=== PATIENT | male | born 1970 | race Caucasian/White ===

== ENCOUNTER 2017-05-15 02:55 | Inpatient (IN) | payer SELFPAY ==
[2017-05-15] VITALS (9 sets, daily range): BP systolic 113–144; BP diastolic 70–91; PULSE 70–103; RESP 12–18; TEMP 97.6–98.8; O2SAT 92–99
[~2017-05-15 02:55] MED LIST: LORTA5 PO; METH500T3 PO; PERC7.5T13 PO
[2017-05-15] MEDS ORDERED: ONDANSETRON HCL 4 MG/2 ML VIAL ONE (03:14)
[2017-05-15] MEDS ORDERED: MORPHINE SULFATE 8 MG/ML INJ ONE (03:14)
[2017-05-15] MEDS ORDERED: SODIUM CHLOR 0.9% 1000 ML INJ 1,000 ML IV SCH (03:26)
[2017-05-15] MEDS ORDERED: SODIUM CHLORIDE 0.9% FLUSH 10 ML FLUSH IV FLUSH PRN (03:30)
[2017-05-15] MEDS ORDERED: MISCELLANEOUS NURSING INFORMATION XX SCH (03:30)
[2017-05-15] MEDS ORDERED: ACETAMINOPHEN 325 MG TAB PO PRN (03:30)
[2017-05-15] MEDS ORDERED: ONDANSETRON HCL 4 MG/2 ML VIAL IV PRN (03:30)
[2017-05-15] MEDS ORDERED: CHLORHEXIDINE GLUCONATE 2 % 1 PACK (2 CLOTHS) TOP PRN (03:30)
[2017-05-15] MEDS ORDERED: ACETAMINOPHEN/HYDROcodone 325 MG/5 MG TAB PO PRN ×2 (03:30)
[2017-05-15] MEDS ORDERED: ENALAPRILAT 1.25 MG/ML VIAL IV PRN (03:30)
[2017-05-15 03:34] LABS: BASOPHIL # 0.2 TH/MM3 (0-0.2); BASOPHIL % 1.1 % (0.0-2.0); EOSINOPHIL # 0.1 TH/MM3 (0-0.4); EOSINOPHIL % 0.6 % (0.0-4.0); HEMATOCRIT 50.5 % (39.0-51.0); HEMO FLAGS DIFF FINAL; LYMPH % 17.7 % (9.0-44.0); LYMPHOCYTE # 2.5 TH/MM3 (1.0-4.8); MEAN CELL VOLUME 94.1 FL (80.0-100.0); MEAN CORPUSCULAR HEMOGLOBIN 31.6 PG (27.0-34.0); MEAN CORPUSCULAR HGB CONC 33.6 % (32.0-36.0); MONO % 3.9 % (0.0-8.0); NEUT % 76.7 % (16.0-70.0); PLATELET COUNT 285 TH/MM3 (150-450); RED BLOOD COUNT 5.36 MIL/MM3 (4.50-5.90); RED CELL DISTRIBUTION WIDTH 14.5 % (11.6-17.2); WHITE BLOOD COUNT 14.3 TH/MM3 (4.0-11.0)
[2017-05-15 03:35] LABS: I-STAT POTASSIUM 3.9 MMOL/L (3.5-4.9)
--- NOTE | 2017-05-15 03:40 | RADRPT ---
EXAM DATE/TIME: 05/15/2017 02:55 [facility] COMPARISON: PELVIS AP ONLY, September 14, 2013, 22:10. INDICATIONS : Trauma alert. Chest pain. MEDICAL HISTORY : None. SURGICAL HISTORY : None. ENCOUNTER: Initial ACUITY: 1 day PAIN SCORE: 0/10 LOCATION: Bilateral pelvis FINDINGS: A single frontal view of the pelvis demonstrates no evidence of fracture. The bony pelvic ring is in tact. Bony mineralization is normal. The soft tissues are intact. Stable postsurgical changes are n oted in the lower lumbar spine status post fusion. CONCLUSION: No acute fracture or malalignment. Faisal Neal MD on May 15, 2017 at 3:39 Board Certified Radiologist. This report was verified electronically.
--- NOTE | 2017-05-15 03:43 | RADRPT ---
EXAM DATE/TIME: 05/15/2017 02:55 [facility] COMPARISON: CHEST SINGLE AP, March 15, 2016, 5:17. INDICATIONS : Trauma alert. Chest pain. MEDICAL HISTORY : None. SURGICAL HISTORY : None. ENCOUNTER: Initial ACUITY: 1 day PAIN SCORE: 0/10 LOCATION: Bilateral chest FINDINGS: 2 AP supine views of the chest demonstrates the lungs to be symmetrically aerated without evidence of mass, infiltrate or effusion. The left lateral chest wall and costophrenic angle are cut off the exa m. The cardiomediastinal contours are unremarkable. Osseous structures are intact. CONCLUSION: 1. Suboptimal exam. The left lateral chest wall and costophrenic angle were not included on the exam. 2. No acute cardiopulmonary disease. Faisal Neal MD on May 15, 2017 at 3:39 Board Certified Radiologist. This report was verified electronically.
--- NOTE | 2017-05-15 03:45 | PD ---
HPI Chief Complaint: trauma alert Time Seen by Provider: 03:26 Travel History International Travel<30 days: No Contact w/Intl Traveler<30days: No Traveled to known affect area: No History of Present Illness HPI 47-year-old male complains of headache, neck pain, back pain, numbness sensation of face, numbness sensation and weakness on the left arm and weakness of bilateral lower extremity. Patient states that he fell from standing physician tonight. Patient states that he had loss of consciousness. Patient is not sure how long he was out however could be 30 minutes. Patient came to the ED by himself. Patient complains of throbbing headache effuse over the head. Patient denies any visual change. Patient complains of moderate to severe tenderness on palpation neck and upper back and low back area. Patient status post L4-L5 back surgery in the past. Patient also has history diabetes. Patient has history of CAD status post FL in the past. Patient states that he had 3 beers tonight. PFSH Past Medical History Arthritis: No Asthma: No Blood Disorders: No Anxiety: Yes Depression: Yes Heart Rhythm Problems: No Cancer: No Cardiovascular Problems: No High Cholesterol: No Chemotherapy: No Chest Pain: No Congestive Heart Failure: No COPD: No Cerebrovascular Accident: No Diabetes: Yes Diminished Hearing: No Endocrine: No Gastrointestinal Disorders: No GERD: No Genitourinary: No Hiatal Hernia: No Hypertension: Yes Immune Disorder: No Implanted Vascular Access Dvce: No Kidney Stones: No Musculoskeletal: Yes (hx of spinal fusion, chronic back pain) Neurologic: No Psychiatric: Yes Reproductive: No Respiratory: No Immunizations Current: No Migraines: No Myocardial Infarction: No Radiation Therapy: No Renal Failure: No Seizures: No Sleep Apnea: No Thyroid Disease: No Ulcer: No Past Surgical History Abdominal Surgery: No Cardiac Surgery: No Ear Surgery: No Endocrine Surgery: No Eye Surgery: No Genitourinary Surgery: No Gynecologic Surgery: No Neurologic Surgery: No Oral Surgery: Yes (wisdom teeth extracted) Pacemaker: No Thoracic Surgery: No Tonsillectomy: Yes Other Surgery: Yes (TONSILLECTOMY,FUSION) Social History Alcohol Use: Yes Tobacco Use: Yes (1 ppd) Substance Use: Yes (pt stated, " I smoked marijuana when I was still 23") Allergies-Medications (Allergen,Severity, Reaction): Coded Allergies: Flagyl (Verified Allergy, Severe, VOMIT, 03/15/16) Toradol (Verified Allergy, Severe, MIGRAIN, 03/15/16) Benadryl (Verified Adverse Reaction, Severe, ITCH, 03/15/16) Reported Meds & Prescriptions Reported Meds & Active Scripts Active Reported Novolog Inj (Insulin Aspart) 1,000 Unit/10 Ml Vial 0 SQ DIRECTED Sliding Scale as directed. Novolin 70/30 Inj (Insulin Human Isoph/Insulin Regular) 1,000 Units/10 Ml Inj 15 Unit SQ BID Review of Systems General / Constitutional: No: Fever Eyes: No: Visual changes HENT: Positive: Headaches, Neck Pain Cardiovascular: No: Chest Pain or Discomfort Respiratory: No: Shortness of Breath Gastrointestinal: No: Abdominal Pain Genitourinary: No: Dysuria Musculoskeletal: No: Pain Skin: No Rash Neurologic: Positive: Weakness, Paresthesia Psychiatric: No: Depression Endocrine: No: Polydipsia Hematologic/Lymphatic: No: Easy Bruising Physical Exam Narrative GENERAL: Well-nourished, well-developed patient. SKIN: Focused skin assessment warm/dry. HEAD: Normocephalic. EYES: No scleral icterus. No injection or drainage. Pupils 2 mm equal reactive. NECK: Supple, trachea midline. No JVD or lymphadenopathy. Moderate tenderness on palpation paraspinal cervical spine. No midline tenderness. CARDIOVASCULAR: Regular rate and rhythm without murmurs, gallops, or rubs. RESPIRATORY: Breath sounds equal bilaterally. No accessory muscle use. GASTROINTESTINAL: Abdomen soft, non-tender, nondistended. MUSCULOSKELETAL: No cyanosis, or edema. BACK: Nontender without obvious deformity. No CVA tenderness. Neurologic exam: Patient has decreased light touch sensation the low part of the face bilaterally. Patient had decreased sensation on the left arm with some mild weakness to left arm. Patient has weakness and lower extremity. Patient unable to lift bilateral low extremity off the table. Data Data Last Documented VS Vital Signs Date Time Temp Pulse Resp B/P Pulse Ox O2 Delivery O2 Flow Rate FiO2 05/15/17 02:55 96 Nasal Cannula 3.00 Orders Morphine Inj (Morphine Inj) (05/15/17 03:14) Ondansetron Inj (Zofran Inj) (05/15/17 03:14) I-Stat Profile (05/15/17 03:15) I-Stat Creatinine (05/15/17 03:15) Complete Blood Count With Diff (05/15/17 03:15) Prothrombin Time / Inr (Pt) (05/15/17 03:15) Act Partial Throm Time (Ptt) (05/15/17 03:15) Type And Screen (05/15/17 03:15) Alcohol (Ethanol) (05/15/17 03:15) Chest, Single Ap (05/15/17 03:15) Pelvis, Ap Only (Routine) (05/15/17 03:15) Ct Brain W/O Iv Contrast(Rout) (05/15/17 03:15) Ct Cerv Spine W/O Contrast (05/15/17 03:15) Ct Thor Spine W/O Contrast (05/15/17 03:15) Ct Lumb Spine W/O Contrast (05/15/17 03:15) Iv Access Insert/Monitor (05/15/17 03:15) Ecg Monitoring (05/15/17 03:15) Oximetry (05/15/17 03:15) Oxygen Administration (05/15/17 03:15) Ed Poc Ultrasound (05/15/17 03:15) Drug Screen, Random Urine (05/15/17 03:15) Consult Aaron Gts (05/15/17 ) Admit To Inpatient (05/15/17 ) Vital Signs (Adult) ZECHARIAH.QSHIFT (05/15/17 03:26) Intake + Output ZECHARIAH.Q8H (05/15/17 03:26) Resp Pulse Oximetry (05/15/17 ) Neuro Checks ZECHARIAH.Q1H (05/15/17 03:26) ^ Cervical Collar (05/15/17 03:26) Instruction (05/15/17 03:26) Complete Blood Count With Diff (05/16/17 06:00) Basic Metabolic Panel (Bmp) (05/16/17 06:00) Resp Oxygen Shane C Titrat 1-4 L (05/15/17 ) Sodium Chlor 0.9% 1000 Ml Inj (Ns 1000 M (05/15/17 03:26) Sodium Chloride 0.9% Flush (Ns Flush) (05/15/17 03:30) Acetamin-Hydrocod 325-5 Mg ([place] 5-325 (05/15/17 03:30) Acetamin-Hydrocod 325-5 Mg ([place] 5-325 (05/15/17 03:30) Acetaminophen (Tylenol) (05/15/17 03:30) Enalaprilat Inj (Vasotec Inj) (05/15/17 03:30) Ondansetron Inj (Zofran Inj) (05/15/17 03:30) Pantoprazole Inj (Protonix Inj) (05/15/17 06:00) Bacitracin Oint (Baciguent Oint) (05/15/17 09:00) Consult Neurosurgery (05/15/17 ) ^ Initiate Protocol (05/15/17 03:26) Instruction (05/15/17 03:26) Misc Nursing Information (05/15/17 03:30) Chlorhexidine 2% Cloth (Chlorhexidine 2% (05/15/17 04:00) Chlorhexidine 2% Cloth (Chlorhexidine 2% (05/15/17 03:30) Mrsa Pcr Surveillance (05/15/17 03:26) Inpatient Certification (05/15/17 ) ^ Log Roll (05/15/17 03:26) Morphine Inj (Morphine Inj) (05/15/17 03:45) ([facility] Use Only)[facility] (05/15/17 ) Collar [place] (05/15/17 ) Admit Order (Ed Use Only) (05/15/17 03:56) Labs Laboratory Tests Test 05/15/17 03:10 White Blood Count 14.3 TH/MM3 Red Blood Count 5.36 MIL/MM3 Hemoglobin 17.0 GM/DL Bedside Hemoglobin 18.0 G/DL Hematocrit 50.5 % Bedside Hematocrit 53.0 % Mean Corpuscular Volume 94.1 FL Mean Corpuscular Hemoglobin 31.6 PG Mean Corpuscular Hemoglobin 33.6 % Concent Red Cell Distribution Width 14.5 % Platelet Count 285 TH/MM3 Mean Platelet Volume 8.6 FL Neutrophils (%) (Auto) 76.7 % Lymphocytes (%) (Auto) 17.7 % Monocytes (%) (Auto) 3.9 % Eosinophils (%) (Auto) 0.6 % Basophils (%) (Auto) 1.1 % Neutrophils # (Auto) 11.0 TH/MM3 Lymphocytes # (Auto) 2.5 TH/MM3 Monocytes # (Auto) 0.6 TH/MM3 Eosinophils # (Auto) 0.1 TH/MM3 Basophils # (Auto) 0.2 TH/MM3 CBC Comment DIFF FINAL Differential Comment Prothrombin Time 10.6 SEC Prothromb Time International 1.0 RATIO Ratio Activated Partial 26.5 SEC Thromboplast Time Bedside Sodium 138 MMOL/L Bedside Potassium 3.9 MMOL/L Bedside Chloride 98 MMOL/L Bedside Blood Urea Nitrogen 3 MG/DL Bedside Creatinine 0.8 MG/DL Bedside Glucose 132 MG/DL Ethyl Alcohol Level 90 MG/DL Blood Type B POSITIVE Antibody Screen NEGATIVE MDM Medical Screen Exam Complete: Yes Emergency Medical Condition: Yes Differential Diagnosis Differential diagnosis including head trauma, neck trauma, thoracic lumbar spine trauma. Narrative Course 47-year-old came in to the emergency room complaining of headache, neck pain, back pain, facial numbness sensation, left arm numbness and sensation and lower extremity weakness. Status post fall. History of back injury status post back surgery in the past. Considering trauma with neurologic deficit, trauma alert was called. Trauma Alert - Level Two Trauma Alert Level Two: Full trauma team activate Diagnosis Diagnosis: Primary Impression: Neck injury Qualified Code: S19.9XXA - Neck injury, initial encounter Additional Impression: Back injury Qualified Code: S39.92XA - Back injury, initial encounter Admitting Physician Requests: Admit Steve Boyd MD May 15, 2017 03:45
[2017-05-15 03:54] LABS: APTT (PATIENT) 26.5 SEC (24.3-30.1); PROTHROMBIN TIME - PATIENT 10.6 SEC (9.8-11.6)
[2017-05-15] MEDS ORDERED: CHLORHEXIDINE GLUCONATE 2 % 1 PACK (2 CLOTHS) TOP SCH (04:00)
--- NOTE | 2017-05-15 04:05 | RADRPT ---
EXAM DATE/TIME: 05/15/2017 03:40 [facility] COMPARISON: CT BRAIN W/O CONTRAST, February 19, 2015, 14:18. INDICATIONS : Trauma. Fall. RADIATION DOSE: 53.94 CTDIvol (mGy) MEDICAL HISTORY : None SURGICAL HISTORY : Fusion, lumbar. ENCOUNTER: Initial ACUITY: 1 day PAIN SCALE: 6/10 LOCATION: cranial TECHNIQUE: Multiple contiguous axial images were obtained of the head. Using automated exposure control and adj ustment of the mA and/or kV according to patient size, radiation dose was kept as low as reasonably a chievable to obtain optimal diagnostic quality images. DICOM format image data is available electro nically for review and comparison. FINDINGS: CEREBRUM: The ventricles are normal for age. No evidence of midline shift, mass lesion, hemorrhage or acute in farction. No extra-axial fluid collections are seen. POSTERIOR FOSSA: The cerebellum and brainstem are intact. The 4th ventricle is midline. The cerebellopontine angle i s unremarkable. EXTRACRANIAL: The visualized portion of the orbits is intact. SKULL: The calvaria is intact. No evidence of skull fracture. CONCLUSION: Negative trauma study. Faisal Neal MD on May 15, 2017 at 4:03 Board Certified Radiologist. This report was verified electronically.
--- NOTE | 2017-05-15 04:06 | RADRPT ---
EXAM DATE/TIME: 05/15/2017 03:40 [facility] COMPARISON: CT CERVICAL SPINE W/O CONTRAST, February 19, 2015, 14:18. INDICATIONS : Trauma. Fall. RADIATION DOSE: 42.99 CTDIvol (mGy) MEDICAL HISTORY : None SURGICAL HISTORY : Fusion, lumbar. ENCOUNTER: Initial ACUITY: 1 day PAIN SCALE: 6/10 LOCATION: neck TECHNIQUE: Volumetric scanning of the cervical spine was performed. Multiplanar reconstructions i n the sagittal, coronal and oblique axial planes were performed. Using automated exposure control a nd adjustment of the mA and/or kV according to patient size, radiation dose was kept as low as reason ably achievable to obtain optimal diagnostic quality images. DICOM format image data is available e lectronically for review and comparison. FINDINGS: The sagittal reconstructions demonstrate normal alignment and normal prevertebral soft tissues. The d ens is intact and there is a normal atlantoaxial relationship. The axial images demonstrate that the vertebral bodies and posterior elements are intact. The soft ti ssues are within normal limits. There is no evidence of acute fracture or malalignment. CONCLUSION: Negative trauma CT. Faisal Neal MD on May 15, 2017 at 4:04 Board Certified Radiologist. This report was verified electronically.
[2017-05-15] MEDS: MORPHINE SULFATE 4 MG/ML INJ IV PRN ×2 (04:21→06:25)
--- NOTE | 2017-05-15 04:22 | RADRPT ---
EXAM DATE/TIME: 05/15/2017 03:44 [facility] COMPARISON: No previous studies available for comparison. INDICATIONS : Trauma. Fall. RADIATION DOSE: 24.94 CTDIvol (mGy) ; Combined studies - Thoracic Spine/Lumbar Spine MEDICAL HISTORY : None SURGICAL HISTORY : Fusion, lumbar. ENCOUNTER: Initial ACUITY: 1 day PAIN SCALE: 6/10 LOCATION: thoracic TECHNIQUE: Volumetric scanning of the thoracic spine was performed. Multiplanar reconstructions in the sagittal , coronal and oblique axial planes were performed. Using automated exposure control and adjustment o f the mA and/or kV according to patient size, radiation dose was kept as low as reasonably achievable to obtain optimal diagnostic quality images. DICOM format image data is available electronically f or review and comparison. FINDINGS: The vertebral bodies of the thoracic spine are in normal alignment without evidence of subluxation. Vertebral body height is maintained. No fractures are seen. The axial images demonstrate that the vertebral bodies and posterior elements are intact. The visuali zed ribs are unremarkable as well. CONCLUSION: Negative trauma CT Faisal Neal MD on May 15, 2017 at 4:19 Board Certified Radiologist. This report was verified electronically.
[2017-05-15] MEDS ORDERED: N7030SS SQ (04:25)
[2017-05-15] MEDS ORDERED: NOVOLOGP2 SQ (04:25)
--- NOTE | 2017-05-15 04:25 | RADRPT ---
EXAM DATE/TIME: 05/15/2017 03:44 [facility] COMPARISON: CT LUMBAR SPINE W/O CONTRAST, March 15, 2016, 7:04. INDICATIONS : Trauma. Fall. RADIATION DOSE: 24.94 CTDIvol (mGy) ; Combined studies - Thoracic Spine/Lumbar Spine MEDICAL HISTORY : None SURGICAL HISTORY : Hemorrhoidectomy. ENCOUNTER: Initial ACUITY: 1 day PAIN SCALE: 6/10 LOCATION: lumbar TECHNIQUE: Volumetric scanning of the lumbar spine was performed. Multiplanar reconstructions in the sagittal, coronal and oblique axial planes were performed. Using automated exposure control and adjustment of the mA and/or kV according to patient size, radiation dose was kept as low as reasonably achievable t o obtain optimal diagnostic quality images. DICOM format image data is available electronically for review and comparison. FINDINGS: VERTEBRAE: Normal vertebral body height. DISCS: The patient is status post ankle fusion of the L4-5 level with bilateral pedicle screws and posterior fixation rods. The hardware remains intact in appearance. ALIGNMENT: No evidence of subluxation. T12-L1: The thecal sac has a normal diameter. No evidence of disc bulge or protrusion. The neural foramina are patent bilaterally. L1-L2: The thecal sac has a normal diameter. No evidence of disc bulge or protrusion. The neural foramina are patent bilaterally. L2-L3: The thecal sac has a normal diameter. No evidence of disc bulge or protrusion. The neural foramina are patent bilaterally. L3-L4: There is a mild annular disc bulge with minimal flattening of the anterior thecal sac and no focal pr otrusion. There are degenerative changes involving the facet joints right greater than left. The neur al foramina are patent bilaterally. L4-L5: Status post staple fusion with bilateral pedicle screws and posterior fixation rods. The thecal sac i s preserved. Neural foramina are patent. L5-S1: There is a mild annular disc bulge with minimal flattening of the thecal sac and no focal protrusion. There are mild degenerative changes on the facet joints. The neural foramina are patent bilaterally. CONCLUSION: 1. No acute fracture or malalignment. 2. Stable postoperative changes status post fusion at the L4-5 level. 3. Mild annular disc bulges again noted at the L3-4 and L5-S1 levels. Faisal Neal MD on May 15, 2017 at 4:21 Board Certified Radiologist. This report was verified electronically.
[2017-05-15] MEDS ORDERED: PANTOPRAZOLE SODIUM 40 MG VIAL IVP SCH (06:00)
[2017-05-15] MEDS ORDERED: DEXTROSE 50% IN WATER 50 ML VIAL(D50) IV PRN (07:30)
[2017-05-15] MEDS ORDERED: GLUCAGON 1 MG/ML VIAL OTHER PRN (07:30)
[2017-05-15] MEDS ORDERED: BISACODYL 10 MG SUPP RECTAL PRN (07:30)
[2017-05-15] MEDS: METHOCARBAMOL 500 MG TAB PO SCH ×3 (08:09→23:10)
[2017-05-15] MEDS: DOCUSATE SODIUM 50 MG/SENNA 8.6 MG TAB PO SCH ×2 (08:09→19:52)
[2017-05-15] MEDS: BACITRACIN TOP OINT 15 GM TUBE TOP SCH ×2 (08:09→19:53)
[2017-05-15] MEDS: LACTULOSE SYRUP 20 GM/30 ML CUP PO SCH (08:10)
--- NOTE | 2017-05-15 08:16 | MH ---
cc: RICARDO HUMPHREY DATE OF ADMISSION: 05/15/2017 HISTORY OF PRESENT ILLNESS The patient is a 47-year-old male who presented himself to the emergency room stating that he fell, lost consciousness and had acute worsening of his chronic lower back pain and trouble moving his legs. The patient states that he was walking when he fell from a standing height and struck his head and was unconscious for up to 30 minutes. The patient states that he was able to ambulate to come to the emergency room but once he was on the stretcher he could barely move his extremities. He also complains of severe back pain on top of his chronic lower back pain. The patient persistently discusses his back fusions and states he needed multiple surgeries, more on his back. The patient admits to drinking alcohol tonight. The patient was evaluated by the emergency room physician, found to have intact airway, breathing circulation with GCS 15, in no distress. Patient having subjective weakness in his foot and felt this was activation criteria and the patient was upgraded to a Trauma Alert. REVIEW OF SYSTEMS A 12-point review of systems is done with the patient and negative except for the pertinent positives mentioned above in the history of present illness. PAST MEDICAL HISTORY 1. Coronary artery disease, status post VT. 2. Anxiety. 3. Depression. 4. Diabetes. 5. Hypertension. 6. Chronic back pain. PAST SURGICAL HISTORY Multiple back surgeries. SOCIAL HISTORY Patient uses tobacco and alcohol currently. History of previous marijuana use. ALLERGIES 1. FLAGYL. 2. TORADOL. 3. BENADRYL. MEDICATIONS 1. [place]. 2. Percocet. 3. Robaxin. PHYSICAL EXAMINATION VITAL SIGNS: Blood pressure and heart rate within normal limits. GENERAL: The patient is a thin male in no acute distress. HEENT: Head is normocephalic, atraumatic. Pupils are equal, round and reactive to light. Sclera anicteric. Midface is stable. Oral cavity is clear. Airway is nonobstructed. NECK: Cervical collar in place. Cervical spine nontender to palpation. Trachea is midline. No JVD. CHEST: Chest wall is nontender to palpation. Breath sounds present bilaterally. HEART: Regular rhythm. No murmurs. ABDOMEN: Soft, nondistended. No seatbelt sign. No organomegaly. No ascites. FAST exam is negative. PELVIS: Stable without deformity. EXTREMITIES: No clubbing, cyanosis or edema. No deformity to four extremities. Multiple abrasions of the skin. No lacerations. BACK: The patient has pain over the thoracic and lumbar spine with no deformity. NEUROLOGIC: GCS is 15. Flat affect. Does not cooperate with exam. Will only move his toes slightly. Does withdraw to pain. LABORATORY VALUES Hemoglobin 17.0. IMAGING CT scan of the patient's head is negative. CT scan of the patient's cervical, lumbar and thoracic spines are negative for acute injury. Multiple chronic changes without of the lumbar spine. ASSESSMENT AND PLAN The patient is a 47-year-old male, status post a self-reported fall with loss of consciousness. GCS is 15. Moving all extremities with subjective weakness of his left lower extremity as well as numbness sensation of his face and left arm. Subjective neurologic findings. Due to patient with a reported history of trauma and possibility of paralysis, will maintain the patient logroll, cervical collar in place, and consult neurosurgery for evaluation prior to any further work-up to sitter MRI or further imaging. Will maintain the patient's pain control. No other acute injuries. Will perform q.1h. Neuro-checks and monitor this patient. MD JENNIFER Kwon/BA /7:42 AM /7:53 AM
--- NOTE | 2017-05-15 09:36 | PD.CONS ---
[facility] Service Neurosurgery Consult Requested By Dr Juliocesar Gomez Reason for Consult Weakness after fall from standing height. Primary Care Physician Unknown History of Present Illness This is a 47-year-old male who reports that he had been at a friend's house and had 1-/2 beers and was walking home when he passed out and fell. He states he felt a little dizzy just prior to his passing out. He reports a loss of consciousness possibly for 30 minutes. When he came to he called 911 and EMS transported the patient to [facility] for evaluation. The patient reported headache, severe neck and back pain with numbness and weakness to the face, left arm and both legs. Due to the physical examinations findings of weakness and numbness the ED Physician activated a level two trauma. It is noted that the ED Physician documents the patient had 3 beers and that he came to the Emergency Department by himself. As the patient is being evaluated his cell phone keeps ringing in the closet and he keeps saying that it might be his cone cleaner. A cane is noted with his possessions which he reports using when he goes for a long walk because of right leg weakness and it going out on him. He does report having a chest pain and syncope 2 to 3 weeks ago and was evaluated with a negative work up at that time. Review of Systems Constitutional: Patient denies any fever, chills, night sweats or any recent weight gain or loss. Integumentary: Patient denies any rashes, ulcerations or other lesions to the skin. HEENT: Patient complains of blurry vision to the right eye. He denies any other visual or hearing difficulty. Respiratory: Patient feels a little short of breath. He denies any wheezing or productive cough. Cardiovascular: Patient complains of chest pain and palpitations. He denies any irregular heartbeat. Gastrointestinal: Patient complains of some nausea. He denies any abdominal pain, vomiting or incontinence of stool. Genitourinary: Patient denies any frequency, urgency, pain with urination or any urinary incontinence. Musculoskeletal: Patient complains of neck and back pain. He has weakness to both legs. He complains of left hand swelling and pain. Neurologic: Patient complains of a headache. He complains of facial and extremity numbness and weakness. Haematological/Lymphatic: Patient denies any easy bruising, bleeding tendencies or swollen glands. Psychiatric: Patient complains of being anxious. Past Family Social History Allergies: Coded Allergies: Flagyl (Verified Allergy, Severe, VOMIT, 03/15/16) Toradol (Verified Allergy, Severe, MIGRAIN, 03/15/16) Benadryl (Verified Adverse Reaction, Severe, ITCH, 03/15/16) Past Medical History 1. Coronary artery disease, status post [place]. 2. Anxiety. 3. Depression. 4. Diabetes. 5. Stroke. 6. Chronic back pain (DDD). He denies any hypertension. Past Surgical History L4-5 fusion and redo. Reported Medications 1. Insulin. 2. Lorazepam (Reportedly hasn't had in 2 months.) Denies any other medications to include pain medications for his back. Active Ordered Medications Current Medications Medications (Trade) Dose Ordered Sig/Ramos Route Start Time Stop Time Status Last Admin (NS 1000 ml Inj) 1,000 ml @ 100 mls/hr Q10H IV 05/15/17 03:26 05/15/17 04:21 (NS Flush) 2 ml UNSCH PRN IV FLUSH 05/15/17 03:30 (Morphine Inj) 4 mg Q1H PRN IV 05/15/17 03:45 05/15/17 06:25 (Gibbon 5-325 Mg) 1 tab Q4H PRN PO 05/15/17 03:30 (Gibbon 5-325 Mg) 2 tab Q4H PRN PO 05/15/17 03:30 05/15/17 08:10 (Tylenol) 650 mg Q6H PRN PO 05/15/17 03:30 (Vasotec Inj) 1.25 mg Q8H PRN IV 05/15/17 03:30 (Zofran Inj) 4 mg Q6H PRN IV 05/15/17 03:30 (Protonix Inj) 40 mg Q24H IVP 05/15/17 06:00 05/15/17 04:21 (Baciguent Oint) 1 applic BID TOP 05/15/17 09:00 05/15/17 08:09 Miscellaneous Information 1 Q361D XX 05/15/17 03:30 (Chlorhexidine 2% Cloth) 3 pack Taper DAILY@04 TOP 05/15/17 04:00 05/11/18 03:59 05/15/17 04:00 Chlorhexidine Gluconate 3 pack 3 pack UNSCH PRN TOP 05/15/17 03:30 (Mvi-12 Inj/ Thiamine Inj/ Folvite Inj/NS 500 ml Inj) 511.2 ml @ 125 mls/hr Q24H IV 05/15/17 10:00 05/17/17 14:06 (D50w (Vial) Inj) 50 ml UNSCH PRN IV 05/15/17 07:30 (Glucagon Inj) 1 mg UNSCH PRN OTHER 05/15/17 07:30 (Geraldine-Colace) 1 tab BID PO 05/15/17 09:00 05/15/17 08:09 (Lactulose Liq) 30 ml DAILY PO 05/15/17 09:00 05/15/17 08:10 (Dulcolax Supp) 10 mg DAILY PRN RECTAL 05/15/17 07:30 (Robaxin) 500 mg Q8H PO 05/15/17 08:00 05/15/17 08:09 Family History Father: [place], DM. Paternal grandmother: CVA. Maternal grandmother: CVA. Social History Single, years ago. 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 States he is a recovering alcoholic but not doing well with it. Does smoke cigarettes. History of prior marijuana use years ago but no illicit drug use now. Physical Exam Vital Signs Vital Signs Date Time Temp Pulse Resp B/P Pulse Ox O2 Delivery O2 Flow Rate FiO2 05/15/17 09:10 12 05/15/17 08:00 98.8 80 15 113/75 92 05/15/17 08:00 80 05/15/17 07:44 99 21 05/15/17 07:00 91 Room Air 05/15/17 06:00 80 05/15/17 04:15 103 05/15/17 04:15 98.8 103 12 144/91 98 05/15/17 04:15 98 Nasal Cannula 2.00 05/15/17 02:55 96 Nasal Cannula 3.00 05/15/17 02:55 96 3.00 Physical Exam GENERAL: The patient is asleep but easily awakens to verbal stimuli. He readily interacts. He appears minimally to mildly uncomfortable during most of the evaluation. His affect is essentially flat. SKIN: Warm, dry & intact except for a small ecchymotic area to the right lateral arm, a small abrasion to the right forearm and a slight beefy red rash to the inner thighs & groin region. HEENT: Normocephalic, atraumatic. PERRLA 3 to 2 mm brisk, EOMI. TMs pearly fermin w/o any otorrhea noted. Bilateral nares moist & pink w/o any rhinorrhea noted. MMM & pink w/o any oral lesions noted. NECK: Midline cervical spine TTP, neck supple, no JVD, trachea midline. CARDIOVASCULAR: S1S2 w/RRR w/o M/G/R, radial, pedal & posterior tibial pulses 2 + bilaterally, cap refill < 2 sec, no pedal edema. Monitor is sinus rhythm w/o any ectopy noted. RESPIRATORY: CTAB w/o W/R/R, equal excursion, nonlaboured, on RA. GASTROINTESTINAL: Abdomen soft, nontender, no palpable masses or organomegaly, positive bowel sounds to all quadrants. It is noted that with deep palpation the patient reports pain to the back. GENITOURINARY: Normal male genitalia, slight beefy red rash to the inner thighs & groin region. MUSCULOSKELETAL: QUINTANILLA to varying degrees, no evident deformities or clubbing. Left hand mildly swollen & TTP. RECTAL: Good tone, no evident blood, stool palpated in the vault. NEUROLOGICAL: AAOx3. Speech clear & appropriate. Follows simple commands w/o difficulty. CN VII bilateral facial numbness L>R, otherwise CN II-XII grossly intact. Decreased sensation to BUE more so distally and L>R. Decreased sensation to BLE more so to anterior and lateral thighs and less to the feet, perineal area with some numbness. Motor strength RUE 5/5 to include hand intrinsics/extrinsics, LUE 4+ to 5/5 to include hand intrinsics/extrinsics (reports pain during testing), BLE 2+ to 3/ 5. Questionable Cervantes's on right but negative on left. No ankle clonus. Plantar response negative on left and neutral on right. Laboratory Laboratory Tests Test 05/15/17 03:10 White Blood Count 14.3 Red Blood Count 5.36 Hemoglobin 17.0 Bedside Hemoglobin 18.0 Hematocrit 50.5 Bedside Hematocrit 53.0 Mean Corpuscular Volume 94.1 Mean Corpuscular Hemoglobin 31.6 Mean Corpuscular Hemoglobin 33.6 Concent Red Cell Distribution Width 14.5 Platelet Count 285 Mean Platelet Volume 8.6 Neutrophils (%) (Auto) 76.7 Lymphocytes (%) (Auto) 17.7 Monocytes (%) (Auto) 3.9 Eosinophils (%) (Auto) 0.6 Basophils (%) (Auto) 1.1 Neutrophils # (Auto) 11.0 Lymphocytes # (Auto) 2.5 Monocytes # (Auto) 0.6 Eosinophils # (Auto) 0.1 Basophils # (Auto) 0.2 CBC Comment DIFF FINAL Differential Comment Prothrombin Time 10.6 Prothromb Time International 1.0 Ratio Activated Partial 26.5 Thromboplast Time Bedside Sodium 138 Bedside Potassium 3.9 Bedside Chloride 98 Bedside Blood Urea Nitrogen 3 Bedside Creatinine 0.8 Bedside Glucose 132 Ethyl Alcohol Level 90 Blood Type B POSITIVE Antibody Screen NEGATIVE Result Diagram: 05/15/17309 Imaging Recent Impressions Thoracic Spine CT 05/15/17314 Signed Impressions: Service Date/Time: Monday, May 15, 2017 03:44 - CONCLUSION: Negative trauma CT Faisal Neal MD Pelvis X-Ray 05/15/17314 Signed Impressions: Service Date/Time: Monday, May 15, 2017 02:55 - CONCLUSION: No acute fracture or malalignment. Faisal Neal MD Lumbar Spine CT 05/15/17314 Signed Impressions: Service Date/Time: Monday, May 15, 2017 03:44 - CONCLUSION: 1. No acute fracture or malalignment. 2. Stable postoperative changes status post fusion at the L4-5 level. 3. Mild annular disc bulges again noted at the L3-4 and L5-S1 levels. Faisal Neal MD Head CT 05/15/17314 Signed Impressions: Service Date/Time: Monday, May 15, 2017 03:40 - CONCLUSION: Negative trauma study. Faisal Neal MD Chest X-Ray 05/15/17314 Signed Impressions: Service Date/Time: Monday, May 15, 2017 02:55 - CONCLUSION: 1. Suboptimal exam. The left lateral chest wall and costophrenic angle were not included on the exam. 2. No acute cardiopulmonary disease. Faisal Neal MD Cervical Spine CT 05/15/17 0315 Signed Impressions: Service Date/Time: Monday, May 15, 2017 03:40 - CONCLUSION: Negative trauma CT. Faisal Neal MD Assessment and Plan Assessment and Plan Impression: 1. Fall 2. Syncope 3. Mild TBI 4. Neck pain 5. Back pain 6. Extremity numbness 7. BLE weakness Negative CT imaging. Patient w/continues w/persistent numbness to all extremities and BLE weakness. Plan: Primary management per Hospitalist/Trauma. Neuro checks. Will obtain MRI imaging of brain & complete spine. Aurelio Barbosa May 15, 2017 09:35
[2017-05-15] MEDS: MULTIVITAMIN INJ 10 ML, THIAMINE INJ 100 MG, FOLIC ACID INJ 1 MG in SODIUM CHLORID 0.9%... IV SCH ×2 (10:42→10:50)
[2017-05-15] MEDS: INSULIN ASPART SUPPLEMENTAL SCALE SQ SCH ×3 (10:59→19:59)
--- NOTE | 2017-05-15 13:36 | PD.CONS ---
HPI Service Rehabilitation Medicine Consult Requested By [facility] trauma service Reason for Consult Comprehensive rehabilitation evaluation. Primary Care Physician Unknown History of Present Illness Francis Jeffries is a 47-year-old [id number] male admitted [facility] 05/15/17 after reported fall from a standing position with reported loss of consciousness. He was noted to have increase in his chronic low back pain and difficulty moving his lower extremities. Glascow coma scale was 15. Head CT was negative for acute intracranial injury. CT of the cervical and thoracic spine were negative. Lumbar spine CT showed no fracture or malalignment with stable postoperative changes L4-L5 fusion and mild annular disc bulges L4-L5 and L5-S1. Patient is reporting diffuse impaired sensation in both upper and lower extremities and persistent diffuse back pain. MRI of the spine is pending. Review of Systems Constitutional: COMPLAINS OF: Fatigue Eyes: COMPLAINS OF: Blurred vision, DENIES: Diplopia Ears, nose, mouth, throat: DENIES: Throat pain Respiratory: DENIES: Shortness of breath Cardiovascular: DENIES: Chest pain Gastrointestinal: COMPLAINS OF: Constipation, DENIES: Abdominal pain Genitourinary: DENIES: Urinary incontinence Musculoskeletal: COMPLAINS OF: Back pain, Neck pain Integumentary: DENIES: Rash Hematologic/lymphatic: DENIES: Bruising Immunologic/allergic: DENIES: Urticaria Neurologic: COMPLAINS OF: Headache, Localized weakness, Paresthesias, DENIES: Speech Problems Psychiatric: DENIES: Confusion Past Family Social History Allergies: Coded Allergies: Flagyl (Verified Allergy, Severe, VOMIT, 03/15/16) Toradol (Verified Allergy, Severe, MIGRAIN, 03/15/16) Benadryl (Verified Adverse Reaction, Severe, ITCH, 03/15/16) Past Medical History Coronary artery disease status post PR Depression Anxiety Diabetes mellitus Hypertension Chronic low back pain Past Surgical History Multiple spine surgeries Current Medications Current Medications Medications (Trade) Dose Ordered Sig/Ramos Route Start Time Stop Time Status Last Admin (NS 1000 ml Inj) 1,000 ml @ 100 mls/hr Q10H IV 05/15/17 03:26 05/15/17 04:21 (NS Flush) 2 ml UNSCH PRN IV FLUSH 05/15/17 03:30 (Tylenol) 650 mg Q6H PRN PO 05/15/17 03:30 (Vasotec Inj) 1.25 mg Q8H PRN IV 05/15/17 03:30 (Zofran Inj) 4 mg Q6H PRN IV 05/15/17 03:30 (Protonix Inj) 40 mg Q24H IVP 05/15/17 06:00 05/15/17 04:21 Bacitracin 1 applic 1 applic BID TOP 05/15/17 09:00 05/15/17 08:09 (Mvi-12 Inj/ Thiamine Inj/ Folvite Inj/NS 500 ml Inj) 511.2 ml @ 125 mls/hr Q24H IV 05/15/17 10:00 05/17/17 14:06 05/15/17 10:50 (D50w (Vial) Inj) 50 ml UNSCH PRN IV 05/15/17 07:30 (Glucagon Inj) 1 mg UNSCH PRN OTHER 05/15/17 07:30 (Geraldine-Colace) 1 tab BID PO 05/15/17 09:00 05/15/17 08:09 (Lactulose Liq) 30 ml DAILY PO 05/15/17 09:00 05/15/17 08:10 (Dulcolax Supp) 10 mg DAILY PRN RECTAL 05/15/17 07:30 (Robaxin) 500 mg Q8H PO 05/15/17 08:00 05/15/17 08:09 Family History Mother: Dementia Father: Diabetes mellitus Social History Prior to admission patient lived in [place], [place] with a roommate. Exam I&O / VS 05/14/17 05/14/17 05/15/17 15:00 23:00 07:00 Intake Total 206 ml Output Total 275 ml Balance -69 ml Intake Oral 0 ml IV Total 206 ml Output Urine Total 275 ml Vital Signs Date Time Temp Pulse Resp B/P Pulse Ox O2 Delivery O2 Flow Rate FiO2 05/15/17 12:01 97.6 70 18 124/70 93 05/15/17 10:00 76 05/15/17 09:10 12 05/15/17 08:00 98.8 80 15 113/75 92 05/15/17 08:00 77 05/15/17 07:44 99 21 05/15/17 07:00 91 Room Air 05/15/17 06:00 80 05/15/17 04:15 103 05/15/17 04:15 98.8 103 12 144/91 98 05/15/17 04:15 98 Nasal Cannula 2.00 05/15/17 02:55 96 Nasal Cannula 3.00 05/15/17 02:55 96 3.00 General: No acute distress Respiratory: Lungs CTA, Non-labored respirations, BS equal Gastrointestinal: Positive Bowel Sounds, Non-Distended Cardiovascular: Normal rate, Normal peripheral perfusion, Regular Rhythm Musculoskeletal: Swelling (None in the distal lower extremities) Psychiatric: Cooperative Orientation: oriented to Self, oriented to Place, oriented to Time, oriented to Situation Neurologic: Cranial Nerves (intact 2 through 12), Facial Symmetry (symmetric), Speech (no word finding difficulties or dysarthria) Motor: Right Upper Extremity (5/5), Left Upper Extremity (5/5), Right Lower Extremity (at least 23/5), Left Lower Extremity (at least 23/5) Sensory Impaired diffusely in the lower extremities and to a lesser degree the upper extremities DTRs: Normal Babinski: Negative Clonus: Negative Assessment and Plan Diagnosis: (1) Lower extremity weakness Laterality: bilateral Qualified Code: R29.898 - Weakness of both lower extremities (2) Extremity numbness Assessment 1. Fall from a standing position with reported loss of consciousness 05/15/17 with extremity numbness and lower extremity weakness 2. Coronary artery disease status post PR 3. Depression 4. Anxiety 5. Diabetes mellitus 6. Hypertension 7. Chronic low back pain with history of previous lumbar surgery Plan 1. MRI of the cervical/thoracic/lumbosacral spine has been ordered per neurosurgery 2. Physical therapy to mobilize once cleared after imaging 3. Will follow regarding ongoing rehabilitation needs while hospitalized at discharge in conjunction with case management Thank you for this consult Melly Betts MD May 15, 2017 13:35
[2017-05-15] MEDS ORDERED: LORazepam 2 MG/ML VIAL IV PUSH SCH (15:30)
[2017-05-15 17:04] LABS: HEMOGLOBIN A1a 1.3 %; HEMOGLOBIN A1b 0.9 %; HEMOGLOBIN F 1.2 %; HEMOGLOBIN LA1C 2.2 %
[2017-05-15] MEDS ORDERED: LORazepam 2 MG TAB PO PRN (17:45)
[2017-05-15] MEDS ORDERED: LORazepam 2 MG/ML VIAL IV PUSH PRN ×3 (17:45)
[2017-05-15] MEDS ORDERED: LORazepam 1 MG TAB PO PRN (17:45)
[2017-05-15] MEDS ORDERED: FLUMAZENIL 0.5 MG/5 ML VIAL IV PUSH PRN (17:45)
--- NOTE | 2017-05-15 17:57 | PD.CONS ---
HPI Service [facility] Consult Requested By Primary Care Physician Unknown Diagnoses: History of Present Illness 47-year-old male with a history of alcoholism, L4-L5 fusion, who presents with what he reports to be a syncopal episode around 3 AM. He says he was drinking at a friend's house, only had 2-1/2 beers. He says while walking home he suddenly became lightheaded and passed out. Denied any chest pain or shortness of breath prior to this. He also reports bilateral facial and lower extremity numbness. He does report constant sharp nonradiating substernal chest pain over the past day. patient reports right eye blurriness since his fall yesterday. Review of Systems performed and negative except for HPI and past medical history. Past Family Social History Allergies: Coded Allergies: Flagyl (Verified Allergy, Severe, VOMIT, 03/15/16) Toradol (Verified Allergy, Severe, MIGRAIN, 03/15/16) Benadryl (Verified Adverse Reaction, Severe, ITCH, 03/15/16) Physical Exam Vital Signs Vital Signs Date Time Temp Pulse Resp B/P Pulse Ox O2 Delivery O2 Flow Rate FiO2 05/15/17 15:57 97.9 83 18 128/83 94 05/15/17 12:01 97.6 70 18 124/70 93 05/15/17 10:00 76 05/15/17 09:10 12 05/15/17 08:00 98.8 80 15 113/75 92 05/15/17 08:00 77 05/15/17 07:44 99 21 05/15/17 07:00 91 Room Air 05/15/17 06:00 80 05/15/17 04:15 103 05/15/17 04:15 98.8 103 12 144/91 98 05/15/17 04:15 98 Nasal Cannula 2.00 05/15/17 02:55 96 Nasal Cannula 3.00 05/15/17 02:55 96 3.00 Physical Exam GENERAL: This is a well-nourished, well-developed patient, in no apparent distress.alert and oriented 3. SKIN: No rashes, ecchymoses or lesions. Cool and dry. HEAD: Atraumatic. Normocephalic. No temporal or scalp tenderness. EYES: Pupils equal round and reactive. Extraocular motions intact. No scleral icterus. No injection or drainage. vision intact bilaterally, all 4 quadrants. An initial evaluation, patient reports absence of vision in right superior medial quadrant, however regains on repeat examination performed after examining opposite eye, ENT: Nose without bleeding, purulent drainage or septal hematoma. Throat without erythema, tonsillar hypertrophy or exudate. Uvula midline. Airway patent. NECK: Trachea midline. No JVD or lymphadenopathy. Supple, nontender, no meningeal signs. CARDIOVASCULAR: Regular rate and rhythm without murmurs, gallops, or rubs. RESPIRATORY: Clear to auscultation. Breath sounds equal bilaterally. No wheezes , rales, or rhonchi. GASTROINTESTINAL: Abdomen soft, non-tender, nondistended. No hepato-splenomegaly , or palpable masses. No guarding. MUSCULOSKELETAL: Extremities without clubbing, cyanosis, or edema. No joint tenderness, effusion, or edema noted. No calf tenderness. Negative Homans sign bilaterally. NEUROLOGICAL: Awake and alert. Cranial nerves II through XII intact. Motor and sensory grossly within normal limits. Five out of 5 muscle strength in all muscle groups, however patient states bilateral lower extremity strength limited by pain. Normal speech. Laboratory Laboratory Tests Test 05/15/17 05/15/17 03:10 08:15 White Blood Count 14.3 Red Blood Count 5.36 Hemoglobin 17.0 Bedside Hemoglobin 18.0 Hematocrit 50.5 Bedside Hematocrit 53.0 Mean Corpuscular Volume 94.1 Mean Corpuscular Hemoglobin 31.6 Mean Corpuscular Hemoglobin 33.6 Concent Red Cell Distribution Width 14.5 Platelet Count 285 Mean Platelet Volume 8.6 Neutrophils (%) (Auto) 76.7 Lymphocytes (%) (Auto) 17.7 Monocytes (%) (Auto) 3.9 Eosinophils (%) (Auto) 0.6 Basophils (%) (Auto) 1.1 Neutrophils # (Auto) 11.0 Lymphocytes # (Auto) 2.5 Monocytes # (Auto) 0.6 Eosinophils # (Auto) 0.1 Basophils # (Auto) 0.2 CBC Comment DIFF FINAL Differential Comment Prothrombin Time 10.6 Prothromb Time International 1.0 Ratio Activated Partial 26.5 Thromboplast Time Bedside Sodium 138 Bedside Potassium 3.9 Bedside Chloride 98 Bedside Blood Urea Nitrogen 3 Bedside Creatinine 0.8 Bedside Glucose 132 Ethyl Alcohol Level 90 Blood Type B POSITIVE Antibody Screen NEGATIVE Nasal Screen MRSA (PCR) MRSA NOT DETECTED Result Diagram: 05/15/17309 Imaging Last Impressions Thoracic Spine CT 05/15/17314 Signed Impressions: Service Date/Time: Monday, May 15, 2017 03:44 - CONCLUSION: Negative trauma CT Faisal Neal MD Pelvis X-Ray 05/15/17314 Signed Impressions: Service Date/Time: Monday, May 15, 2017 02:55 - CONCLUSION: No acute fracture or malalignment. Faisal Neal MD Lumbar Spine CT 05/15/17314 Signed Impressions: Service Date/Time: Monday, May 15, 2017 03:44 - CONCLUSION: 1. No acute fracture or malalignment. 2. Stable postoperative changes status post fusion at the L4-5 level. 3. Mild annular disc bulges again noted at the L3-4 and L5-S1 levels. Faisal Neal MD Head CT 05/15/17314 Signed Impressions: Service Date/Time: Monday, May 15, 2017 03:40 - CONCLUSION: Negative trauma study. Faisal Neal MD Chest X-Ray 05/15/17314 Signed Impressions: Service Date/Time: Monday, May 15, 2017 02:55 - CONCLUSION: 1. Suboptimal exam. The left lateral chest wall and costophrenic angle were not included on the exam. 2. No acute cardiopulmonary disease. Faisal Neal MD Cervical Spine CT 05/15/17314 Signed Impressions: Service Date/Time: Monday, May 15, 2017 03:40 - CONCLUSION: Negative trauma CT. Faisal Neal MD Assessment and Plan Assessment and Plan //Possible syncope. -Expect this was likely secondary to etoh intoxication, dehydration -Due to patient's concern, will order ultrasound carotids, echocardiogram. Patient unable to stand secondary to back pain at this time. //Status post ground-level fall. //Severe back pain. Trauma service, neurosurgery following. Pain management as per surgical service. Appreciate assistance. //Chest pain. Atypical. Given timing of onset being yesterday, will check serial troponin and EKG. Echocardiogram ordered for syncope as above. //Suspected alcohol withdrawal //Alcoholism [facility] protocol ordered. //Right eye visual deficit. Reported. On repeat examination several minutes later, patient regains full vision in right eye. Suspect factitious. //Diabetes mellitus. Insulin sliding scale. Diabetic diet. A1c pending. Continue to monitor blood sugars. //Tobaccoism. Cessation counseling provided. //Cytosis. Likely stress related. No signs of infection. Continue to monitor. //Prophylaxis. As per surgical service. Discussed Condition With patient, nurse. Otto Cronin MD May 15, 2017 17:57
[2017-05-15] MEDS: LORazepam 2 MG/ML VIAL IV PUSH PRN (19:53)
[2017-05-15 20:10] LABS: AMPHETAMINE, URINE NEG (NEG); BARBITURATES, URINE NEG (NEG); COCAINE, URINE NEG (NEG)
[2017-05-15] MEDS ORDERED: MORPHINE SULFATE 4 MG/ML INJ IV PUSH ONE (20:30)
--- NOTE | 2017-05-15 21:00 | RADRPT ---
EXAM DATE/TIME: 05/15/2017 18:39 [facility] COMPARISON: No previous studies available for comparison. INDICATIONS : Syncope. MEDICAL HISTORY : Cerebrovascular accident. Myocardial infarction. Paresthesia. Diabetes. Anxiety. SURGICAL HISTORY : Tonsillectomy. Spinal fusion. Foot surgery, unspecified. ENCOUNTER: Initial ACUITY: 2 days PAIN SCORE: 8/10 LOCATION: Bilateral neck PEAK SYSTOLIC VELOCITIES (cm/sec): ICA/CCA RATIO: Right: 0.9 Left: 0.8 ICA: Right: 81.3 Left: 76.6 CCA: Right: 95.3 Left: 90.6 ECA: Right: 92.4 Left: 93.0 VERTEBRAL: Right: 35.1 antegrade Left: 47.8 antegrade Elevated flow velocities and ICA/CCA ratios have been found to correlate with increased degrees of vessel stenosis, calculated as percentage of diameter relative to a normal segment of distal ICA/CCA FINDINGS: RIGHT CAROTID: No significant stenosis is visualized. The waveforms are within normal limits. LEFT CAROTID: No significant stenosis is visualized. The waveforms are within normal limits. VERTEBRAL ARTERIES: Antegrade flow is seen in both vertebral arteries. CONCLUSION: Normal hemodynamic profile bilateral carotids. Delta Coley MD on May 15, 2017 at 20:58 Board Certified Radiologist. This report was verified electronically.
--- NOTE | 2017-05-15 21:59 | RADRPT ---
EXAM DATE/TIME: 05/15/2017 21:33 [facility] COMPARISON: CT THORACIC SPINE W/O CONTRAST, May 15, 2017, 3:44. MRI THORACIC SPINE W/O CONTRAST, March 15 6, 17:04. INDICATIONS : Pain. Mid back pain. MEDICAL HISTORY : Diabetes mellitus type 2. SURGICAL HISTORY : Tonsillectomy. Fusion, lumbar. Bilateral foot sx. ENCOUNTER: Initial ACUITY: 1 day PAIN SCORE: 3/10 LOCATION: Bilateral mid back region. TECHNIQUE: Multiplanar multisequence MRI of the thoracic spine was performed. FINDINGS: VERTEBRA: Normal vertebral body height. Homogeneous marrow signal. ALIGNMENT: Normal. CORD: Normal position (T12-L1) and configuration. T1-T2: Normal. T2-T3: The thecal sac has a normal diameter. No evidence of disc bulge or protrusion. T3-T4: Left paracentral disc bulge, only seen on sagittal images, similar to prior. T4-T5: Left lateral disc bulge or protrusion, only seen on sagittal images, similar to prior. T5-T6: The thecal sac has a normal diameter. No evidence of disc bulge or protrusion. T6-T7: The thecal sac has a normal diameter. No evidence of disc bulge or protrusion. T7-T8: The thecal sac has a normal diameter. No evidence of disc bulge or protrusion. T8-T9: The thecal sac has a normal diameter. No evidence of disc bulge or protrusion. T9-T10: The thecal sac has a normal diameter. No evidence of disc bulge or protrusion. T10-T11: The thecal sac has a normal diameter. No evidence of disc bulge or protrusion. T11-T12: The thecal sac has a normal diameter. No evidence of disc bulge or protrusion. T12-L1: The thecal sac has a normal diameter. No evidence of disc bulge or protrusion. CONCLUSION: No acute findings in the thoracic spine. Left lateral disc bulge or protrusions at T3-4 and T4-5 are similar to prior MRI in March 2016. No significant abnormalities in the marrow of the thoracic verte bral bodies. Delta Coley MD on May 15, 2017 at 21:54 Board Certified Radiologist. This report was verified electronically.
--- NOTE | 2017-05-15 22:12 | RADRPT ---
EXAM DATE/TIME: 05/15/2017 21:33 [facility] COMPARISON: CT CERVICAL SPINE W/O CONTRAST, May 15, 2017, 3:40. MRI CERVICAL SPINE W/O CONTRAST, March 15 6, 17:04. INDICATIONS : Pain. MEDICAL HISTORY : Diabetes mellitus type 2. SURGICAL HISTORY : Tonsillectomy. Lumbar sx, Bilateral foot sx. ENCOUNTER: Initial ACUITY: 1 day PAIN SCORE: 4/10 LOCATION: Bilateral neck region. TECHNIQUE: Multiplanar, multisequence MRI examination of the cervical spine was performed. FINDINGS: Image quality is compromised by patient motion. The study is still diagnostic VERTEBRAE: Normal vertebral body height. Homogeneous marrow signal. ALIGNMENT: No evidence of subluxation. CORD: Normal configuration and signal. POST FOSSA: The cerebellar tonsils are normal in position. C2-C3: The thecal sac has a normal configuration. There is no evidence of disc herniation or spinal canal s tenosis. The neural foramina are patent bilaterally. C3-C4: The thecal sac has a normal configuration. There is no evidence of disc herniation or spinal canal s tenosis. The neural foramina are patent bilaterally. C4-C5: The thecal sac has a normal configuration. There is no evidence of disc herniation or spinal canal s tenosis. The neural foramina are patent bilaterally. C5-C6: Mild central bulging of the disc does cause some flattening of the ventral margin of thecal sac. Thi s is similar to prior MR. C6-C7: Minimal bulging of the disc without significant deformity of the thecal sac on axial images. C7-T1: The thecal sac has a normal configuration. There is no evidence of disc herniation or spinal canal s tenosis. The neural foramina are patent bilaterally. CONCLUSION: 1. No signal abnormalities in the osseous structures of the cervical spine. No evidence compression deformity. 2. Mild disc bulging at C5-6 and C6-7, similar to prior MRI in March 2016. Delta Coley MD on May 15, 2017 at 22:07 Board Certified Radiologist. This report was verified electronically.
[2017-05-15] MEDS ORDERED: GADODIAMIDE PF 287 MG/ML 5 ML VIAL (for RAD MRI) IV ONE (22:27)
--- NOTE | 2017-05-15 22:51 | RADRPT ---
EXAM DATE/TIME: 05/15/2017 21:33 [facility] COMPARISON: CT BRAIN W/O CONTRAST, February 19, 2015, 14:18. CT BRAIN W/O CONTRAST, May 15, 2017, 3:40. INDICATIONS : Syncope MEDICAL HISTORY : Diabetes mellitus type 2. SURGICAL HISTORY : Tonsillectomy. Lumbar sx, Bilateral foot sx. ENCOUNTER: Initial ACUITY: 1 day PAIN SCORE: 3/10 LOCATION: Bilateral cranial TECHNIQUE: Multiplanar, multisequence MRI of the brain was performed without contrast. FINDINGS: CEREBRUM: The ventricles are normal for age. No evidence of midline shift, mass lesion, hemorrhage or acute in farction. No extraaxial fluid collections are seen. The pituitary gland and suprasellar cistern are normal in configuration. WHITE MATTER: No significant signal abnormalities are seen in the white matter. POSTERIOR FOSSA: The cerebellum and brainstem are intact. The 4th ventricle is midline. The cerebellopontine angle is unremarkable. The cerebellar tonsils are normal in position.DIFFUSION IMAGING: No focal areas of restricted diffusion are seen. No evidence of acute infarction. EXTRACRANIAL: The visualized portions of the orbits and paranasal sinuses are unremarkable. CONCLUSION: Negative MRI of the brain without contrast. Delta Coley MD on May 15, 2017 at 22:48 Board Certified Radiologist. This report was verified electronically.
[2017-05-15 23:16] LABS: CREATINE KINASE 47 U/L (39-308)
--- NOTE | 2017-05-15 23:17 | RADRPT ---
EXAM DATE/TIME: 05/15/2017 21:33 [facility] COMPARISON: MRI LUMBAR SPINE W & W/O CONTRAST, March 15, 2016, 17:04. INDICATIONS : Lower back pain. History of prior lumbar fusion. CONTRAST: 15 cc Omniscan (gadodiamide) IV MEDICAL HISTORY : Diabetes mellitus type 2. SURGICAL HISTORY : Fusion, lumbar. Tonsillectomy. Bilateral foot sx. ENCOUNTER: Initial ACUITY: 1 day PAIN SCORE: 4/10 LOCATION: Bilateral lower back region. TECHNIQUE: Multiplanar multisequence MRI of the lumbar spine was performed with and without contrast. FINDINGS: The most caudal appearing lumbar vertebra is numbered as L5. VERTEBRAE: Homogeneous signal. Normal alignment. CONUS: Normal level and configuration. DISCS: Status post fusion at the L4-5 level with bilateral pedicle screws and posterior fixation rods. N. iniguez sceptibility artifact. POST CONTRAST: No abnormal areas of contrast enhancement are seen. T12-L1: The thecal sac has a normal diameter. No evidence of disc bulge or protrusion. The neural foramina are patent bilaterally. L1-L2: The thecal sac has a normal diameter. No evidence of disc bulge or protrusion. The neural foramina are patent bilaterally. L2-L3: The thecal sac has a normal diameter. No evidence of disc bulge or protrusion. are mild degenerativ e changes involving the facet joints with hypertrophy of ligamentum flavum. Mild narrowing of the rig ht neural foramen is again noted. L3-L4: The thecal sac has a normal diameter. No evidence of disc bulge or protrusion. The neural foramina are patent bilaterally. L4-L5: Status post fusion with bilateral pedicle screws and posterior fixation rods. The thecal sac is prese rved. The neural foramina are patent. L5-S1: Mild disc bulge versus broad-based posterior protrusion without significant change. There is slight f lattening the anterior thecal sac. The neural foramina are patent. There are mild degenerative change involving the facet joints. There is no central canal stenosis. CONCLUSION: 1. Status post fusion at the L4-5 level with stable appearance and preserve thecal sac. 2. Mild disc bulge versus broad-based posterior protrusion at L5-S1 without change. 3. Mild degenerative changes involving the lower facet joints. Faisal Neal MD on May 15, 2017 at 23:10 Board Certified Radiologist. This report was verified electronically.
[2017-05-16] MEDS: LORazepam 2 MG/ML VIAL IV PUSH PRN ×3 (00:37→06:17)
[2017-05-16 01:05] VITALS: BP 130/70; PULSE 83; RESP 16; TEMP 98.4; O2SAT 93
[2017-05-16 04:00] VITALS: BP 119/62; PULSE 66; RESP 18; TEMP 97.9; O2SAT 94
[2017-05-16] MEDS: INSULIN ASPART SUPPLEMENTAL SCALE SQ SCH ×2 (06:21→13:12)
[2017-05-16 08:00] VITALS: BP 107/65; PULSE 77; RESP 20; TEMP 97.7; O2SAT 94
[2017-05-16] MEDS: DOCUSATE SODIUM 50 MG/SENNA 8.6 MG TAB PO SCH (08:25)
[2017-05-16] MEDS: METHOCARBAMOL 500 MG TAB PO SCH (08:25)
[2017-05-16] MEDS: MULTIVITAMIN INJ 10 ML, THIAMINE INJ 100 MG, FOLIC ACID INJ 1 MG in SODIUM CHLORID 0.9%... IV SCH (08:26)
[2017-05-16] MEDS: LACTULOSE SYRUP 20 GM/30 ML CUP PO SCH (08:26)
[2017-05-16] MEDS: BACITRACIN TOP OINT 15 GM TUBE TOP SCH (08:26)
[2017-05-16 08:57] LABS: AUTOMATED NEUTROPHIL # 6.1 TH/MM3 (1.8-7.7); BASOPHIL # 0.1 TH/MM3 (0-0.2); BASOPHIL % 0.8 % (0.0-2.0); EOSINOPHIL # 0.1 TH/MM3 (0-0.4); EOSINOPHIL % 1.5 % (0.0-4.0); HEMATOCRIT 44.2 % (39.0-51.0); HEMO FLAGS DIFF FINAL; LYMPH % 21.3 % (9.0-44.0); LYMPHOCYTE # 1.9 TH/MM3 (1.0-4.8); MEAN CELL VOLUME 95.5 FL (80.0-100.0); MEAN CORPUSCULAR HEMOGLOBIN 31.8 PG (27.0-34.0); MEAN CORPUSCULAR HGB CONC 33.3 % (32.0-36.0); MONO % 6.2 % (0.0-8.0); NEUT % 70.2 % (16.0-70.0); PLATELET COUNT 226 TH/MM3 (150-450); RED BLOOD COUNT 4.62 MIL/MM3 (4.50-5.90); RED CELL DISTRIBUTION WIDTH 14.3 % (11.6-17.2); WHITE BLOOD COUNT 8.7 TH/MM3 (4.0-11.0)
[2017-05-16] MEDS ORDERED: INSULIN DETEMIR 100 UNITS/ML VIAL SQ SCH ×2 (09:15→21:00)
[2017-05-16] MEDS ORDERED: NICOTINE 14 MG/24 HR PATCH T-DERMAL ONE (09:15)
[2017-05-16 09:17] LABS: BICARBONATE 24.1 MEQ/L (21.0-32.0); POTASSIUM 3.8 MEQ/L (3.5-5.1)
[2017-05-16 12:00] VITALS: BP 121/74; PULSE 95; RESP 20; TEMP 98; O2SAT 96
--- NOTE | 2017-05-16 12:23 | HHI.NSPN ---
History Chief Complaint: Persistent numbness and weakness. Interval History 05/15: This is a 47-year-old male who reports that he had been at a friend's house and had 1-/2 beers and was walking home when he passed out and fell. He states he felt a little dizzy just prior to his passing out. He reports a loss of consciousness possibly for 30 minutes. When he came to he called 911 and EMS transported the patient to [facility] for evaluation. The patient reported headache, severe neck and back pain with numbness and weakness to the face, left arm and both legs. Due to the physical examinations findings of weakness and numbness the ED Physician activated a level two trauma. It is noted that the ED Physician documents the patient had 3 beers and that he came to the Emergency Department by himself. 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 A cane is noted with his possessions which he reports using when he goes for a long walk because of right leg weakness and it going out on him. He does report having a chest pain and syncope 2 to 3 weeks ago and was evaluated with a negative work up at that time. 05/16: The patient is awake and alert when seen this afternoon. He continues to complain of numbness and weakness to the face and extremities with the only change being less numbness to the right foot. He continues to have pain to the neck and back. Physical Therapy is at the bedside and reported that he did get up to a chair yesterday with assistance. He was transferred to a regular med/ surg floor from the [facility] yesterday. He completed MRI imaging of the brain and complete spine yesterday evening which was unremarkable for any acute findings. System Review Comments Constitutional: Patient denies any fever or chills. HEENT: Patient complains of blurry vision to the right eye. He denies any other visual or hearing difficulty. Respiratory: Patient denies any shortness of breath or productive cough. Cardiovascular: Patient complains of chest pain and palpitations. He denies any irregular heartbeat. Gastrointestinal: Patient denies any abdominal pain, nausea, vomiting or incontinence of stool. Genitourinary: Patient denies any frequency, urgency, pain with urination or any urinary incontinence. Musculoskeletal: Patient complains of neck and back pain. He has weakness to both legs. He complains of left hand swelling and pain. Neurologic: Patient complains of a headache. He complains of facial and extremity numbness and weakness. Psychiatric: Patient complains of being anxious. Exam Results Vital Signs Date Time Temp Pulse Resp B/P Pulse Ox O2 Delivery O2 Flow Rate FiO2 05/16/17 08:20 Room Air 05/16/17 08:00 97.7 77 20 107/65 94 05/15/17 07:44 21 05/15/17 04:15 2.00 Intake and Output 05/15/17 05/15/17 05/16/17 08:00 16:00 00:00 Intake Total 206 ml 440 ml Output Total 275 ml Balance -69 ml 440 ml Physical Examination GENERAL: The patient is awake and readily interacts. He appears minimally uncomfortable w/o any evident distress. His affect is somewhat flat. SKIN: Warm, dry & intact except for ecchymosis to the right arm and a small abrasion to the right forearm. HEENT: Normocephalic, atraumatic. NECK: Midline cervical spine TTP, neck supple, no JVD, trachea midline. CARDIOVASCULAR: S1S2 w/RRR w/o M/G/R, radial, pedal & posterior tibial pulses 2 + bilaterally, cap refill < 2 sec, no pedal edema. RESPIRATORY: CTAB w/o W/R/R, equal excursion, nonlaboured, on RA. GASTROINTESTINAL: Abdomen soft, nontender, positive bowel sounds to all quadrants. MUSCULOSKELETAL: QUINTANILLA to varying degrees, no evident deformities or clubbing. Left hand mildly swollen & TTP. NEUROLOGICAL: AAOx3. Speech clear & appropriate. Follows simple commands w/o difficulty. Decreased sensation to BUE more so distally and L>R. Decreased sensation to BLE more so to anterior and lateral thighs and less to the feet. Motor strength RUE 5/5 to include hand intrinsics/extrinsics, LUE 4+ to 5/5 but hand intrinsics/extrinsics 3+ to 4/5 (reports pain during testing), BLE 2+ to 3/ 5. Lab, Micro, Other Results Allergies Coded Allergies Type Severity Reaction Last Updated Verified Flagyl Allergy Severe VOMIT 03/15/16 Yes Toradol Allergy Severe MIGRAIN 03/15/16 Yes Benadryl Adverse Reaction Severe ITCH 03/15/16 Yes Recent Impressions Thoracic Spine CT 05/15/17314 Signed Impressions: Service Date/Time: Monday, May 15, 2017 03:44 - CONCLUSION: Negative trauma CT Faisal Neal MD Pelvis X-Ray 05/15/17314 Signed Impressions: Service Date/Time: Monday, May 15, 2017 02:55 - CONCLUSION: No acute fracture or malalignment. Faisal Neal MD Lumbar Spine CT 05/15/17314 Signed Impressions: Service Date/Time: Monday, May 15, 2017 03:44 - CONCLUSION: 1. No acute fracture or malalignment. 2. Stable postoperative changes status post fusion at the L4-5 level. 3. Mild annular disc bulges again noted at the L3-4 and L5-S1 levels. Faisal Neal MD Head CT 05/15/17314 Signed Impressions: Service Date/Time: Monday, May 15, 2017 03:40 - CONCLUSION: Negative trauma study. Faisal Neal MD Chest X-Ray 05/15/17314 Signed Impressions: Service Date/Time: Monday, May 15, 2017 02:55 - CONCLUSION: 1. Suboptimal exam. The left lateral chest wall and costophrenic angle were not included on the exam. 2. No acute cardiopulmonary disease. Faisal Neal MD Cervical Spine CT 05/15/17314 Signed Impressions: Service Date/Time: Monday, May 15, 2017 03:40 - CONCLUSION: Negative trauma CT. Faisal Neal MD Thoracic Spine MRI 05/15/17 Signed Impressions: Service Date/Time: Monday, May 15, 2017 21:33 - CONCLUSION: No acute findings in the thoracic spine. Left lateral disc bulge or protrusions at T3- 4 and T4-5 are similar to prior MRI in March 2016. No significant abnormalities in the marrow of the thoracic vertebral bodies. Delta Coley MD Lumbar Spine MRI 05/15/17 Signed Impressions: Service Date/Time: Monday, May 15, 2017 21:33 - CONCLUSION: 1. Status post fusion at the L4-5 level with stable appearance and preserve thecal sac. 2. Mild disc bulge versus broad-based posterior protrusion at L5-S1 without change. 3. Mild degenerative changes involving the lower facet joints. Faisal Neal MD Cervical Spine MRI 05/15/17 0000 Signed Impressions: Service Date/Time: Monday, May 15, 2017 21:33 - CONCLUSION: 1. No signal abnormalities in the osseous structures of the cervical spine. No evidence compression deformity. 2. Mild disc bulging at C5-6 and C6-7, similar to prior MRI in March 2016. Delta Coley MD Carotid Artery Ultrasound 05/15/17 0000 Signed Impressions: Service Date/Time: Monday, May 15, 2017 18:39 - CONCLUSION: Normal hemodynamic profile bilateral carotids. Delta Coley MD Brain MRI 05/15/17 0000 Signed Impressions: Service Date/Time: Monday, May 15, 2017 21:33 - CONCLUSION: Negative MRI of the brain without contrast. Delta Coley MD ///// 05:59 17:59 05:59 17:59 05:59 17:59 Intake Total 646 ml Output Total 275 ml 600 ml 500 ml Balance 371 ml -600 ml -500 ml Intake Oral 0 ml IV Total 646 ml Output Urine Total 275 ml 600 ml 500 ml # Bowel Movements 0 Laboratory Tests Test 05/15/17 05/15/17 05/15/17 05/16/17 03:10 08:15 18:15 07:35 Bedside Hemoglobin 18.0 G/DL Bedside Hematocrit 53.0 % Prothrombin Time 10.6 SEC Prothromb Time International 1.0 RATIO Ratio Activated Partial 26.5 SEC Thromboplast Time Bedside Sodium 138 MMOL/L Bedside Potassium 3.9 MMOL/L Bedside Chloride 98 MMOL/L Bedside Blood Urea Nitrogen 3 MG/DL Bedside Creatinine 0.8 MG/DL Bedside Glucose 132 MG/DL Hemoglobin A1c 6.8 % Total Creatine Kinase 47 U/L Troponin I LESS THAN 0.02 NG/ML Ethyl Alcohol Level 90 MG/DL Blood Type B POSITIVE Antibody Screen NEGATIVE White Blood Count 14.3 TH/MM3 8.7 TH/MM3 Red Blood Count 5.36 MIL/MM3 4.62 MIL/MM3 Hemoglobin 17.0 GM/DL 14.7 GM/DL Hematocrit 50.5 % 44.2 % Mean Corpuscular Volume 94.1 FL 95.5 FL Mean Corpuscular Hemoglobin 31.6 PG 31.8 PG Mean Corpuscular Hemoglobin 33.6 % 33.3 % Concent Red Cell Distribution Width 14.5 % 14.3 % Platelet Count 285 TH/MM3 226 TH/MM3 Mean Platelet Volume 8.6 FL 8.9 FL Neutrophils (%) (Auto) 76.7 % 70.2 % Lymphocytes (%) (Auto) 17.7 % 21.3 % Monocytes (%) (Auto) 3.9 % 6.2 % Eosinophils (%) (Auto) 0.6 % 1.5 % Basophils (%) (Auto) 1.1 % 0.8 % Neutrophils # (Auto) 11.0 TH/MM3 6.1 TH/MM3 Lymphocytes # (Auto) 2.5 TH/MM3 1.9 TH/MM3 Monocytes # (Auto) 0.6 TH/MM3 0.5 TH/MM3 Eosinophils # (Auto) 0.1 TH/MM3 0.1 TH/MM3 Basophils # (Auto) 0.2 TH/MM3 0.1 TH/MM3 CBC Comment DIFF FINAL DIFF FINAL Differential Comment Nasal Screen MRSA (PCR) MRSA NOT DETECTED Urine Opiates Screen POS Urine Barbiturates Screen NEG Urine Amphetamines Screen NEG Urine Benzodiazepines Screen POS Urine Cocaine Screen NEG Urine Cannabinoids Screen NEG Sodium Level 137 MEQ/L Potassium Level 3.8 MEQ/L Chloride Level 103 MEQ/L Carbon Dioxide Level 24.1 MEQ/L Anion Gap 10 MEQ/L Blood Urea Nitrogen 9 MG/DL Creatinine 0.69 MG/DL Estimat Glomerular Filtration 122 ML/MIN Rate Random Glucose 91 MG/DL Calcium Level 8.8 MG/DL Vital Signs Date Time Temp Pulse Resp B/P Pulse Ox O2 Delivery O2 Flow Rate FiO2 05/16/17 12:00 98.0 95 20 121/74 96 05/16/17 08:20 Room Air 05/16/17 08:00 97.7 77 20 107/65 94 05/16/17 04:00 97.9 66 18 119/62 94 05/16/17 01:05 98.4 83 16 130/70 93 05/15/17 21:03 98.1 77 16 141/83 95 05/15/17 15:57 97.9 83 18 128/83 94 05/15/17 12:01 97.6 70 18 124/70 93 05/15/17 10:00 76 05/15/17 09:10 12 05/15/17 08:00 98.8 80 15 113/75 92 05/15/17 08:00 77 05/15/17 07:44 99 21 05/15/17 07:00 91 Room Air 05/15/17 06:00 80 05/15/17 04:15 103 05/15/17 04:15 98.8 103 12 144/91 98 05/15/17 04:15 98 Nasal Cannula 2.00 05/15/17 02:55 96 Nasal Cannula 3.00 05/15/17 02:55 96 3.00 Medical Decision Making Impression and Plan Impression: 1. Fall 2. Syncope 3. Mild TBI 4. Neck pain 5. Back pain 6. Extremity numbness 7. BLE weakness CT brain negative trauma study. CT cervical spine negative trauma CT. CT thoracic spine negative trauma CT. CT lumbar spine no acute findings, stable postop changes s/p L4-5 fusion and mild annular disc bulges again noted at L3-4 & L5-S1 levels. MRI brain negative. MRI cervical spine no signal abnormalities or compression deformities , mild disc bulging at C5-6 & C6-7 similar to 2015 MRI. MRI thoracic spine no acute spine findings or significant abnormalities to marrow, left lateral disc bulge/protrusions at T3-4 & T4-5 similar to 2015 MRI. MRI lumbar spine s/p L4-5 fusion w/stable appearance & preservation of the thecal sac, mild disc bulge vs broad-based protrusion at L5-S1 w/o change and mild degenerative changes involving the lower facet joints. Patient examination essentially unchanged from yesterday. Imaging studies do not explain the patient's signs and symptoms. Plan: Primary management per Hospitalist. Neuro checks. Aurelio Barbosa May 16, 2017 12:23 Aurelio Barbosa May 16, 2017 12:23 Aurelio Barbosa May 16, 2017 12:23
[2017-05-16] MEDS ORDERED: CHLO10CA5 PO (12:46)
--- NOTE | 2017-05-16 12:52 | ECHRPT ---
Indication: syncope CONCLUSIONS Normal left ventricular size. Wall thickness is normal. The left ventricular systolic function is low normal with an estimated ejection fraction in the rang e of 50- 55%. The pulmonary valve is not well visualized. BP: / HR: Rhythm: Sinus Technical Quality:Very technically difficult study FINDINGS LEFT VENTRICLE Normal left ventricular size. Wall thickness is normal. The left ventricular systolic function is low normal with an estimated ejection fraction in the rang e of 50- 55%. RIGHT VENTRICLE Normal right ventricular size and systolic function. LEFT ATRIUM The left atrial size is normal. RIGHT ATRIUM The right atrial size is normal. ATRIAL SEPTUM Normal atrial septal thickness without atrial level shunting by limited color doppler interrogation. AORTA The aortic root and proximal ascending aorta are normal in size on limited imaging. MITRAL VALVE Structurally normal mitral valve. No mitral valve stenosis or regurgitation. AORTIC VALVE Trileaflet aortic valve. No aortic valve stenosis or regurgitation. TRICUSPID VALVE Structurally normal tricuspid valve. No tricuspid valve stenosis or regurgitation. PULMONARY VALVE The pulmonary valve is not well visualized. VESSELS The inferior vena cava is normal in size. PERICARDIUM No pericardial effusion. Derik Boykin MD, FACC (Electronically Signed) Final Date:16 May 2017 12:52
--- NOTE | 2017-05-16 18:22 | EKG ---
Date Performed: 05/15/2017 Time Performed: 18:19:02 PTAGE: 47 years EKG: SINUS BRADYCARDIA Since previous tracing, no significant change noted BORDERLINE ECG PREVIOUS TRACING : 03/15/2016 05.04 DOCTOR: Violette Mendez Interpretating Date/Time 05/16/2017 18:22:02
--- NOTE | 2017-05-16 22:47 | HHI.DS ---
Discharge Summary Admission Date May 15, 2017 at 03:58 Discharge Date: May 16, 2017 Admitting Diagnosis spine injury (1) Factitious disorder ICD Code: F68.10 Procedures no invasive procedures performed. Brief History - From Admission 47-year-old male with a history of alcoholism, L4-L5 fusion, who presents with what he reports to be a syncopal episode around 3 AM. He says he was drinking at a friend's house, only had 2-1/2 beers. He says while walking home he suddenly became lightheaded and passed out. Denied any chest pain or shortness of breath prior to this. He also reports bilateral facial and lower extremity numbness. He does report constant sharp nonradiating substernal chest pain over the past day. patient reports right eye blurriness since his fall yesterday. CBC/BMP: 05/16/17 0735 05/16/17 0735 Significant Findings Laboratory Tests Test 05/15/17 05/15/17 05/16/17 03:10 18:15 07:35 Bedside Hemoglobin 18.0 G/DL (12.0-17.0) Bedside Hematocrit 53.0 % (38.0-51.0) Bedside Blood Urea Nitrogen 3 MG/DL (8-26) Bedside Glucose 132 MG/DL (60-95) Hemoglobin A1c 6.8 % (4.3-6.0) Troponin I LESS THAN 0.02 NG/ML (0.02-0.05) Ethyl Alcohol Level 90 MG/DL (0-5) White Blood Count 14.3 TH/MM3 (4.0-11.0) Neutrophils (%) (Auto) 76.7 % 70.2 % (16.0-70.0) (16.0-70.0) Neutrophils # (Auto) 11.0 TH/MM3 (1.8-7.7) Urine Opiates Screen POS (NEG) Urine Benzodiazepines Screen POS (NEG) Imaging Last Impressions Thoracic Spine CT 05/15/17 4675 Signed Impressions: Service Date/Time: Monday, May 15, 2017 03:44 - CONCLUSION: Negative trauma CT Faisal Neal MD Pelvis X-Ray 05/15/17314 Signed Impressions: Service Date/Time: Monday, May 15, 2017 02:55 - CONCLUSION: No acute fracture or malalignment. Faisal Neal MD Lumbar Spine CT 05/15/17314 Signed Impressions: Service Date/Time: Monday, May 15, 2017 03:44 - CONCLUSION: 1. No acute fracture or malalignment. 2. Stable postoperative changes status post fusion at the L4-5 level. 3. Mild annular disc bulges again noted at the L3-4 and L5-S1 levels. Faisal Neal MD Head CT 05/15/17314 Signed Impressions: Service Date/Time: Monday, May 15, 2017 03:40 - CONCLUSION: Negative trauma study. Faisal Neal MD Chest X-Ray 05/15/17314 Signed Impressions: Service Date/Time: Monday, May 15, 2017 02:55 - CONCLUSION: 1. Suboptimal exam. The left lateral chest wall and costophrenic angle were not included on the exam. 2. No acute cardiopulmonary disease. Faisal Neal MD Cervical Spine CT 05/15/17314 Signed Impressions: Service Date/Time: Monday, May 15, 2017 03:40 - CONCLUSION: Negative trauma CT. Faisal Neal MD Thoracic Spine MRI 05/15/17 Signed Impressions: Service Date/Time: Monday, May 15, 2017 21:33 - CONCLUSION: No acute findings in the thoracic spine. Left lateral disc bulge or protrusions at T3- 4 and T4-5 are similar to prior MRI in March 2016. No significant abnormalities in the marrow of the thoracic vertebral bodies. Delta Coley MD Lumbar Spine MRI 05/15/17 Signed Impressions: Service Date/Time: Monday, May 15, 2017 21:33 - CONCLUSION: 1. Status post fusion at the L4-5 level with stable appearance and preserve thecal sac. 2. Mild disc bulge versus broad-based posterior protrusion at L5-S1 without change. 3. Mild degenerative changes involving the lower facet joints. Faisal Neal MD Cervical Spine MRI 05/15/17 Signed Impressions: Service Date/Time: Monday, May 15, 2017 21:33 - CONCLUSION: 1. No signal abnormalities in the osseous structures of the cervical spine. No evidence compression deformity. 2. Mild disc bulging at C5-6 and C6-7, similar to prior MRI in March 2016. Delta Coley MD Carotid Artery Ultrasound 05/15/17 0000 Signed Impressions: Service Date/Time: Monday, May 15, 2017 18:39 - CONCLUSION: Normal hemodynamic profile bilateral carotids. Delta Coley MD Brain MRI 05/15/17 0000 Signed Impressions: Service Date/Time: Monday, May 15, 2017 21:33 - CONCLUSION: Negative MRI of the brain without contrast. Delta Coley MD PE at Discharge GENERAL: patient sitting up in bed. Appears comfortable. Alert and oriented 3. SKIN: Warm and dry. HEAD: Normocephalic. EYES: No scleral icterus. No injection or drainage. NECK: Supple, trachea midline. No JVD. CARDIOVASCULAR: Regular rate and rhythm without murmurs, gallops, or rubs. RESPIRATORY: Breath sounds equal bilaterally. No accessory muscle use. GASTROINTESTINAL: Abdomen soft, non-tender, nondistended. MUSCULOSKELETAL: No cyanosis, or edema. BACK: Nontender without obvious deformity. No CVA tenderness. Pt update on day of discharge patient seen several times this morning. Requesting narcotic pain medications. patient says he'll just go to another doctor to get narcotic pain medications. Requesting IV Ativan for withdrawal. upon being notified that he will not receive any narcotic pain medications or IV Ativan,Says he is able to walk, however limited by pain. Discussed with nursing. Patient seen walking aroundwith his cane. Ordered Holter monitor, however patient has refused. discussed with neurosurgery. Cleared for discharge Hospital Course //Possible syncope. -Expect this was likely secondary to etoh intoxication, dehydration -Due to patient's concern, will order ultrasound carotids, echocardiogram. Patient unable to stand secondary to back pain at this time. //Status post ground-level fall. //Severe back pain. Trauma service, neurosurgery following. Pain management as per surgical service. Appreciate assistance. //Chest pain. Atypical. Given timing of onset being yesterday, will check serial troponin and EKG. Echocardiogram ordered for syncope as above. //Suspected alcohol withdrawal //Alcoholism [facility] protocol ordered. //Right eye visual deficit. Reported. On repeat examination several minutes later, patient regains full vision in right eye. Suspect factitious. //Diabetes mellitus. Insulin sliding scale. Diabetic diet. A1c pending. Continue to monitor blood sugars. //Tobaccoism. Cessation counseling provided. //Cytosis. Likely stress related. No signs of infection. Continue to monitor. //Prophylaxis. As per surgical service. Pt Condition on Discharge: Good Discharge Disposition: Discharge Home Discharge Time: > 30 minutes Discharge Instructions DIET: Follow Instructions for: As Tolerated, No Restrictions Activities you can perform: Regular-No Restrictions Follow up Referrals: PCP Follow-up - 3-5 Days New Medications: Chlordiazepoxide HCl (Chlordiazepoxide HCl) 10 Mg Capsule 1 TAB PO DIRECTED Take THREE Times daily for 3 Days, then TWICE daily for 3 days, then ONCE a day for 3 Days. Alcohol Detox #18 TAB Continued Medications: Insulin Aspart Inj (Novolog Inj) 1,000 Unit/10 Ml Vial 0 SQ DIRECTED Sliding Scale as directed. Blood Sugar Management #10 Ref 0 ML Insulin Human Isophane-Regular 70-30 Inj (Novolin 70/30 Inj) 1,000 Units/10 Ml Inj 15 UNIT SQ BID Otto Cronin MD May 16, 2017 22:47
[2017-05-17] MEDS ORDERED: REMOVE OLD PATCH T-DERMAL SCH (09:00)
[2017-05-17] MEDS ORDERED: NICOTINE 14 MG/24 HR PATCH T-DERMAL SCH (09:00)
== END 2017-05-16 14:28 | disposition home or self-care (01) | DRG 897 ==
LOC: NEPI 02:55 → NEDA 03:58 → N03A 04:08 → N05A 11:11
PROVIDERS: ADMIT Internal Medicine; ATTEND Internal Medicine
DX: F10.229 Alcohol dependence with intoxication, unspecified (principal); F10.239 Alcohol dependence with withdrawal, unspecified; I10 Essential (primary) hypertension; F32.9 Major depressive disorder, single episode, unspecified; R55 Syncope and collapse; E86.0 Dehydration; M54.2 Cervicalgia; R20.0 Anesthesia of skin; S50.811A Abrasion of right forearm, initial encounter; E11.9 Type 2 diabetes mellitus without complications; Z79.4 Long term (current) use of insulin; F41.9 Anxiety disorder, unspecified; G89.29 Other chronic pain; I25.10 Atherosclerotic heart disease of native coronary artery without angina pectoris; I25.2 Old myocardial infarction; Z86.73 Personal history of transient ischemic attack (TIA), and cerebral infarction without residual deficits; Z98.1 Arthrodesis status; F17.210 Nicotine dependence, cigarettes, uncomplicated; Y90.4 Blood alcohol level of 80-99 mg/100 ml
CPT/HCPCS: 70450; 70551; 71010; 72125; 72128; 72131; 72141; 72146; 72158; 72170; 76937; 80048; 80307; 82435; 82550; 82565; 82947; 82948; 83036; 84132; 84295; 84484; 84520; 85025; 85610; 85730; 86850; 86900; 86901; 87641; 93005; 93306; 93880; 96374; A9579; C9113; J1815; J2060; J2270; J2405; J3411; J7030; J7040; L0150

== ENCOUNTER 2017-08-03 17:02 | Emergency (ER) | payer SELFPAY ==
[~2017-08-03] VITALS: Ht 177.8 cm; Wt 79.0 kg
[~2017-08-03 17:02] MED LIST changes: +CHLO10CA5 PO; -LORTA5 PO; -METH500T3 PO; +N7030SS SQ; +NOVOLOGP2 SQ; -PERC7.5T13 PO
[2017-08-03 17:11] VITALS: BP 125/75; PULSE 108; RESP 19; TEMP 98.3; O2SAT 95
[2017-08-03 17:14] VITALS: BP 125/75; PULSE 96; RESP 24; TEMP 98.3; O2SAT 93
[2017-08-03 17:37] LABS: AUTOMATED NEUTROPHIL # 5.8 TH/MM3 (1.8-7.7); BASOPHIL # 0.1 TH/MM3 (0-0.2); EOSINOPHIL # 0.1 TH/MM3 (0-0.4); EOSINOPHIL % 0.6 % (0.0-4.0); HEMATOCRIT 47.6 % (39.0-51.0); LYMPH % 29.5 % (9.0-44.0); LYMPHOCYTE # 2.7 TH/MM3 (1.0-4.8); MEAN CELL VOLUME 92.2 FL (80.0-100.0); MEAN CORPUSCULAR HEMOGLOBIN 31.1 PG (27.0-34.0); MEAN CORPUSCULAR HGB CONC 33.7 % (32.0-36.0); MEAN PLATELET VOLUME 8.1 FL (7.0-11.0); MONO % 5.2 % (0.0-8.0); MONOCYTE # 0.5 TH/MM3 (0-0.9); NEUT % 63.7 % (16.0-70.0); PLATELET COUNT 210 TH/MM3 (150-450); RED BLOOD COUNT 5.16 MIL/MM3 (4.50-5.90); RED CELL DISTRIBUTION WIDTH 13.2 % (11.6-17.2); WHITE BLOOD COUNT 9.2 TH/MM3 (4.0-11.0)
[2017-08-03] MEDS ORDERED: LORazepam 2 MG/ML VIAL IV PUSH PRN ×4 (17:45)
[2017-08-03] MEDS ORDERED: LORazepam 1 MG TAB PO PRN (17:45)
[2017-08-03] MEDS ORDERED: ACETAMINOPHEN 325 MG TAB PO PRN (17:45)
[2017-08-03] MEDS ORDERED: ONDANSETRON HCL 4 MG/2 ML VIAL IV PUSH PRN (17:45)
[2017-08-03] MEDS ORDERED: LORazepam 2 MG TAB PO PRN (17:45)
[2017-08-03] MEDS ORDERED: FLUMAZENIL 0.5 MG/5 ML VIAL IV PUSH PRN (17:45)
[2017-08-03] MEDS ORDERED: ONDANSETRON ODT 4 MG TAB PO PRN (17:45)
[2017-08-03 18:05] LABS: ALBUMIN 3.9 GM/DL (3.4-5.0); ALKALINE PHOSPHATASE 90 U/L (45-117); ALT (GPT) 25 U/L (12-78); AST (GOT) 39 U/L (15-37); BICARBONATE 25.3 MEQ/L (21.0-32.0); BLOOD UREA NITROGEN 6 MG/DL (7-18); CALCIUM 8.9 MG/DL (8.5-10.1); CHLORIDE 106 MEQ/L (98-107); GLOMERULAR FILTRATION RATE 103 ML/MIN (>89); GLUCOSE,RANDOM 102 MG/DL (74-106); SODIUM (NA) 142 MEQ/L (136-145); TOTAL BILIRUBIN ADULT 0.4 MG/DL (0.2-1.0); TOTAL PROTEIN 7.6 GM/DL (6.4-8.2)
--- NOTE | 2017-08-03 18:12 | RADRPT ---
EXAM DATE/TIME: 08/03/2017 17:46 [facility] COMPARISON: CT BRAIN W/O CONTRAST, May 15, 2017, 3:40. INDICATIONS : Altered mental status. RADIATION DOSE: 38.63 CTDIvol (mGy) MEDICAL HISTORY : Diabetes mellitus type 2. Cardiovascular disease Cerebrovascular disease. SURGICAL HISTORY : None. ENCOUNTER: Initial ACUITY: 1 day PAIN SCALE: Non-responsive LOCATION: cranial TECHNIQUE: Multiple contiguous axial images were obtained of the head. Using automated exposure control and adj ustment of the mA and/or kV according to patient size, radiation dose was kept as low as reasonably a chievable to obtain optimal diagnostic quality images. DICOM format image data is available electro nically for review and comparison. FINDINGS: CEREBRUM: The ventricles are normal for age. No evidence of midline shift, mass lesion, hemorrhage or acute in farction. No extra-axial fluid collections are seen. POSTERIOR FOSSA: The cerebellum and brainstem are intact. The 4th ventricle is midline. The cerebellopontine angle i s unremarkable. EXTRACRANIAL: The visualized portion of the orbits is intact. SKULL: The calvaria is intact. No evidence of skull fracture. CONCLUSION: Normal examination. Delta Delgadillo Jr., MD on August 03, 2017 at 18:09 Board Certified Radiologist. This report was verified electronically.
[2017-08-03 18:13] LABS: ACETAMINOPHEN LESS THAN 2.0 MCG/ML (10.0-30.0)
--- NOTE | 2017-08-03 18:17 | RADRPT ---
EXAM DATE/TIME: 08/03/2017 17:46 [facility] COMPARISON: CT CERVICAL SPINE W/O CONTRAST, May 15, 2017, 3:40. INDICATIONS : Altered mental status; patient is suicidal per history. RADIATION DOSE: 20.43 CTDIvol (mGy) MEDICAL HISTORY : Diabetes mellitus type 2. Cardiovascular disease Cerebrovascular disease. SURGICAL HISTORY : lumbar surgery ENCOUNTER: Initial ACUITY: 1 day PAIN SCALE: Non-responsive LOCATION: neck TECHNIQUE: Volumetric scanning of the cervical spine was performed. Multiplanar reconstructions in the sagittal, coronal and oblique axial planes were performed. Using automated exposure control and adjustment o f the mA and/or kV according to patient size, radiation dose was kept as low as reasonably achievable to obtain optimal diagnostic quality images. DICOM format image data is available electronically f or review and comparison. FINDINGS: VERTEBRAE: Normal vertebral body height. ALIGNMENT: No evidence of subluxation. C2-C3: The bony spinal canal is normal in size. No evidence of disc bulge or herniation. The neural forami na are bilaterally patent. C3-C4: The bony spinal canal is normal in size. No evidence of disc bulge or herniation. The neural forami na are bilaterally patent. C4-C5: The bony spinal canal is normal in size. No evidence of disc bulge or herniation. The neural forami na are bilaterally patent. C5-C6: The bony spinal canal is normal in size. No evidence of disc bulge or herniation. The neural forami na are bilaterally patent. C6-C7: The bony spinal canal is normal in size. No evidence of disc bulge or herniation. The neural forami na are bilaterally patent. C7-T1: The bony spinal canal is normal in size. No evidence of disc bulge or herniation. The neural forami na are bilaterally patent. CONCLUSION: Normal examination for a patient of this age. Renzo Thomason MD on August 03, 2017 at 18:09 Board Certified Radiologist. This report was verified electronically.
--- NOTE | 2017-08-03 18:42 | RADRPT ---
EXAM DATE/TIME: 08/03/2017 17:50 [facility] COMPARISON: CT LUMBAR SPINE W/O CONTRAST, May 15, 2017, 3:44. INDICATIONS : Patient complains of back pain. RADIATION DOSE: 38.79 CTDIvol (mGy) MEDICAL HISTORY : Cardiovascular disease. Cerebrovascular disease. Diabetes mellitus type 2. SURGICAL HISTORY : lumbar surgery ENCOUNTER: Initial ACUITY: 1 day PAIN SCALE: Non-responsive LOCATION: lower back TECHNIQUE: Volumetric scanning of the lumbar spine was performed. Multiplanar reconstructions in the sagittal, coronal and oblique axial planes were performed. Using automated exposure control and adjustment of the mA and/or kV according to patient size, radiation dose was kept as low as reasonably achievable t o obtain optimal diagnostic quality images. DICOM format image data is available electronically for review and comparison. FINDINGS: VERTEBRAE: Bilateral transpedicular posterior fixation with intervening bone graft device at L4-L5. Vertebral dorothy dy heights are maintained. ALIGNMENT: No evidence of subluxation. T12-L1: The thecal sac has a normal diameter. No evidence of disc bulge or protrusion. The neural foramina are patent bilaterally. L1-L2: The thecal sac has a normal diameter. No evidence of disc bulge or protrusion. The neural foramina are patent bilaterally. L2-L3: The thecal sac has a normal diameter. No evidence of disc bulge or protrusion. The neural foramina are patent bilaterally. L3-L4: There is a mild broad-based disc bulge. Central canal and neural foramina are patent. Moderate bony h ypertrophy of the facets. L4-L5: This level is fused. Orthopedic hardware obscures some of the level. The central canal appears grossl y patent. Neural foramina are patent. L5-S1: There is a mild broad-based disc bulge. Central canal and neural foramina are patent. Moderate bony h ypertrophy of the facets. CONCLUSION: 1. No acute outer mality. 2. Posterior fusion at L4-L5. 3. Mild degenerative disc disease at L3-L4 and L5-S1. No neural impingement or central canal stenosis . Delta Delgadillo Jr., MD on August 03, 2017 at 18:34 Board Certified Radiologist. This report was verified electronically.
--- NOTE | 2017-08-03 18:46 | PD ---
HPI Chief Complaint: Psychiatric Symptoms Time Seen by Provider: 17:12 Travel History International Travel<30 days: No Contact w/Intl Traveler<30days: No Traveled to known affect area: No History of Present Illness HPI 47-year-old male that presents to the ED for evaluation of psychiatric illness. Patient was Noe acted by police after apparently he made attacks to one of his friends state that he wanted to hurt himself. Per patient he denies this. Patient was sent to [facility] and because of his alcohol abuse, history of diabetes on insulin as well as possible seizures he was sent here for evaluation. Per patient he feels like his having withdrawals from his alcohol. Per patient he last drank a couple hours before coming. He states that he drinks be heavily every day. He has a history of alcoholism. He states that he's had seizures in per the records from [facility] he had a seizure about 2 weeks ago and per patient he tells me he had a seizure earlier today which is what prompted his examination. Unclear as to if this is true or not as he does not appear to have any signs of trauma although he tells me that he did hit his head and back. He does have a history of chronic neck and back pain and requests something for pain. Per patient he symptoms are 10 out of 10. When irregular into the room patient has tremors to his hands. When no one is no room he does not have this tremors anymore. Patient completely denies this is all ideation. Per patient he doesn't know what a Noe act is. He denies any homicidal ideation. No hallucinations. No other substance abuse. PFSH Past Medical History Arthritis: No Asthma: No Blood Disorders: No Anxiety: Yes Depression: No Heart Rhythm Problems: No Cancer: No Cardiovascular Problems: Yes ([place] 2015) High Cholesterol: No Chemotherapy: No Chest Pain: No Congestive Heart Failure: No COPD: No Cerebrovascular Accident: Yes (2016) Diabetes: Yes Patient Takes Glucophage: No Diminished Hearing: No Endocrine: No Gastrointestinal Disorders: No GERD: No Genitourinary: No Hiatal Hernia: No Hypertension: Yes Immune Disorder: No Implanted Vascular Access Dvce: No Kidney Stones: No Musculoskeletal: Yes (hx of spinal fusion, chronic back pain) Neurologic: No Psychiatric: No Reproductive: No Respiratory: No Immunizations Current: No Migraines: No Myocardial Infarction: Yes (2015) Radiation Therapy: No Renal Failure: No Seizures: No Sleep Apnea: No Thyroid Disease: No Ulcer: No Past Surgical History Abdominal Surgery: No Cardiac Surgery: No Ear Surgery: No Endocrine Surgery: No Eye Surgery: No Genitourinary Surgery: No Gynecologic Surgery: No Neurologic Surgery: Yes (lumbar fusion) Oral Surgery: Yes (wisdom teeth extracted) Pacemaker: No Thoracic Surgery: No Tonsillectomy: Yes Other Surgery: Yes (TONSILLECTOMY,FUSION) Social History Alcohol Use: Yes Tobacco Use: Yes (1 ppd) Substance Use: No Allergies-Medications (Allergen,Severity, Reaction): Coded Allergies: ketorolac (Unverified Allergy, Severe, MIGRAIN, 05/28/17) metronidazole (Unverified Allergy, Severe, VOMIT, 05/28/17) diphenhydramine (Unverified Adverse Reaction, Severe, ITCH, 05/28/17) Reported Meds & Prescriptions Reported Meds & Active Scripts Active Chlordiazepoxide HCl 10 Mg Capsule 1 Tab PO DIRECTED Take THREE Times daily for 3 Days, then TWICE daily for 3 days, then ONCE a day for 3 Days. Reported Novolog Inj (Insulin Aspart) 1,000 Unit/10 Ml Vial 0 SQ DIRECTED Sliding Scale as directed. Novolin 70/30 Inj (Insulin Human Isoph/Insulin Regular) 1,000 Units/10 Ml Inj 15 Unit SQ BID Review of Systems ROS Limitations: Intoxication Except as stated in HPI: all other systems reviewed are Neg Physical Exam Exam Limitations: Intoxication Narrative GENERAL: SKIN: Warm and dry. HEAD: Atraumatic. Normocephalic. EYES: Pupils equal and round. No scleral icterus. No injection or drainage. ENT: No nasal bleeding or discharge. Mucous membranes pink and moist. Tongue is midline. No uvula deviation. NECK: Trachea midline. No JVD. CARDIOVASCULAR: Regular rate and rhythm. No murmurs, S3, S4. RESPIRATORY: No accessory muscle use. Clear to auscultation. Breath sounds equal bilaterally. GASTROINTESTINAL: Abdomen soft, non-tender, nondistended. Hepatic and splenic margins not palpable. MUSCULOSKELETAL: Extremities without clubbing, cyanosis, or edema. No obvious deformities. Full range of motion of the upper and lower extremities bilaterally. Patient appears to have a slight tremor to the right and left upper extremities both more noticeable on the right compared to the left. 2+ pulses bilaterally. No obvious lumbar, thoracic, cervical spine tenderness to palpation. Patient able to move the lower extremities with no obvious distress. NEUROLOGICAL: Awake and alert. No obvious cranial nerve deficits. Motor grossly within normal limits. Five out of 5 muscle strength in the arms and legs. Normal speech. PSYCHIATRIC: Appropriate mood and affect; insight and judgment normal. Data Data Last Documented VS Vital Signs Date Time Temp Pulse Resp B/P (MAP) Pulse Ox O2 Delivery O2 Flow Rate FiO2 08/03/17 17:14 98.3 96 24 125/75 (92) 93 Room Air Orders Orders ^ Sitter (08/03/17 17:17) Complete Blood Count With Diff (08/03/17 17:17) Comprehensive Metabolic Panel (08/03/17 17:17) Psych Screen (08/03/17 17:17) Drug Screen, Random Urine (08/03/17 17:17) Alcohol (Ethanol) (08/03/17 17:17) Salicylates (Aspirin) (08/03/17 17:17) Tylenol (Acetaminophen) (08/03/17 17:17) Ct Brain W/O Iv Contrast(Rout) (08/03/17 17:29) Lactic Acid (08/03/17 17:29) Alcohol Withdrawal Asmt-Ciwa ONCE (08/03/17 17:31) Ondansetron Inj (Zofran Inj) (08/03/17 17:45) Acetaminophen (Tylenol) (08/03/17 17:45) Flumazenil Inj (Romazicon Inj) (08/03/17 17:45) Lorazepam (Ativan) (08/03/17 17:45) Lorazepam Inj (Ativan Inj) (08/03/17 17:45) Lorazepam (Ativan) (08/03/17 17:45) Lorazepam Inj (Ativan Inj) (08/03/17 17:45) Lorazepam Inj (Ativan Inj) (08/03/17 17:45) Lorazepam Inj (Ativan Inj) (08/03/17 17:45) Ct Cerv Spine W/O Contrast (08/03/17 ) Ct Lumb Spine W/O Contrast (08/03/17 ) Ondansetron Odt (Zofran Odt) (08/03/17 17:45) Labs Laboratory Tests Test 08/03/17 17:20 White Blood Count 9.2 TH/MM3 Red Blood Count 5.16 MIL/MM3 Hemoglobin 16.0 GM/DL Hematocrit 47.6 % Mean Corpuscular Volume 92.2 FL Mean Corpuscular Hemoglobin 31.1 PG Mean Corpuscular Hemoglobin Concent 33.7 % Red Cell Distribution Width 13.2 % Platelet Count 210 TH/MM3 Mean Platelet Volume 8.1 FL Neutrophils (%) (Auto) 63.7 % Lymphocytes (%) (Auto) 29.5 % Monocytes (%) (Auto) 5.2 % Eosinophils (%) (Auto) 0.6 % Basophils (%) (Auto) 1.0 % Neutrophils # (Auto) 5.8 TH/MM3 Lymphocytes # (Auto) 2.7 TH/MM3 Monocytes # (Auto) 0.5 TH/MM3 Eosinophils # (Auto) 0.1 TH/MM3 Basophils # (Auto) 0.1 TH/MM3 CBC Comment DIFF FINAL Differential Comment Blood Urea Nitrogen 6 MG/DL Creatinine 0.80 MG/DL Random Glucose 102 MG/DL Total Protein 7.6 GM/DL Albumin 3.9 GM/DL Calcium Level 8.9 MG/DL Alkaline Phosphatase 90 U/L Aspartate Amino Transf (AST/SGOT) 39 U/L Alanine Aminotransferase (ALT/SGPT) 25 U/L Total Bilirubin 0.4 MG/DL Sodium Level 142 MEQ/L Potassium Level 3.7 MEQ/L Chloride Level 106 MEQ/L Carbon Dioxide Level 25.3 MEQ/L Anion Gap 11 MEQ/L Estimat Glomerular Filtration Rate 103 ML/MIN Salicylates Level 3.5 MG/DL Acetaminophen Level LESS THAN 2.0 MCG/ML Ethyl Alcohol Level 283 MG/DL MDM Medical Decision Making Medical Screen Exam Complete: Yes Emergency Medical Condition: Yes Medical Record Reviewed: Yes Interpretation(s) CBC & BMP Diagram 08/03/17 17:20 Total Protein 7.6, Albumin 3.9, Calcium Level 8.9, Alkaline Phosphatase 90, Aspartate Amino Transf (AST/SGOT) 39 H, Alanine Aminotransferase (ALT/SGPT) 25, Total Bilirubin 0.[address] 08/03/17 1729 Signed Impressions: Service Date/Time: Thursday, August 03, 2017 17:46 - CONCLUSION: Normal examination. Delta Delgadillo Jr., MD Cervical Spine CT 08/03/17 0000 Signed Impressions: Service Date/Time: Thursday, August 03, 2017 17:46 - CONCLUSION: Normal examination for a patient of this age. Renzo Thomason MD CT lumbar shows chronic changed but not acute changes Differential Diagnosis Seizure versus head injury versus alcohol withdrawal versus fracture versus Depression versus suicidal ideation versus anxiety versus adjustment disorder versus mood disorder versus bipolar disorder versus schizophrenia versus paranoid disorder versus psychosis versus substance abuse versus alcohol abuse versus alcohol induced psychosis versus homicidality addition versus cutting versus personality disorder Narrative Course 47 yo male that comes to the ED for evaluation of Noe act. Patient was properly examined and was found to have signs and symptoms consistent with alcohol intoxication and psychiatric illness. No sign of acute medical distress. Per patient he had a seizure and he has a history of withdrawal seizures. He does have a history of chronic alcohol. I do not see any signs of trauma on his examination. He complains of severe back pain but whenever leave the room she is sleeping profoundly in no sign of acute distress. He also complains of a tremor from alcohol withdrawal but again when I leave the room the tremor completely subsides. He does have a history of malingering and factitious disorder from previous examinations after reviewing his medical records. At this time and will do some labs and imaging. CIWA was ordered. Labs and imaging were essentially unremarkable other than for elevated alcohol in the 200s. No sign of hyperglycemia or DKA. Patient found sleeping in no sign of distress. No sign of withdrawals at this time. Patient was medically cleared. Okay to be seen by psych. Mental health screening was discussed with the patient. Diagnosis Primary Impression: Alcohol-induced mood disorder Mp Napoles Aug 03, 2017 18:46
[2017-08-03] MEDS ORDERED: INSU100V2 SQ (20:27)
[2017-08-03 22:13] VITALS: BP 127/84; PULSE 108; RESP 16; O2SAT 98
[2017-08-04 02:03] VITALS: BP 175/65; PULSE 110; RESP 17; O2SAT 97
[2017-08-04 06:15] VITALS: BP 130/69; PULSE 97; RESP 16; O2SAT 95
[2017-08-04 07:58] VITALS: BP 159/86; PULSE 98; RESP 18; O2SAT 97
[2017-08-04 09:43] VITALS: BP 159/86; PULSE 86; RESP 18; O2SAT 97
--- NOTE | 2017-08-04 09:46 | PD ---
History of Present Illness Chief Complaint: Psychiatric Symptoms Time Seen by Provider: 09:25 Travel History International Travel<30 Days: No Contact w/Intl Traveler<30days: No Known affected area: No Legal Status Legal Status: Noe Act Noe Act Signed By: Donaldo Angel History of Present Illness: History of Present Illness 47-year-old male with history of alcohol abuse , no psychiatric history that presents to the ED on a Noe act initiated by law enforcement. The Noe act alleges that he made suicidal statements to a friend. H e did not make any attempts at harming himself and denies any previous suicdal attempts. He was intoxicated at the time and presents to ED with BAL of 283. He was monitored in J pod with no behavioral concerns presented and no suicidality. EMR reviewed. previous visits to ED for alcohol related issues including intoxication. This morning the patient is clinically sober. No signs of withdrawal. Speech is clear and logical. No evidence of tremors. He denies having made any suicidal statements and states " I told my friend "I was ready to check out " meaning ready to check out of the hotel. He denies any suicidal ideation, intent or plan. Denies any hallucinations, no evidence of any delusions. No marco. PFSH Past Medical History Arthritis: No Asthma: No Blood Disorders: No Anxiety: Yes Depression: No Heart Rhythm Problems: No Cancer: No Cardiovascular Problems: Yes (ND 2015) High Cholesterol: No Chemotherapy: No Chest Pain: No Congestive Heart Failure: No COPD: No Cerebrovascular Accident: Yes (2015) Diabetes: Yes Patient Takes Glucophage: No Diminished Hearing: No Endocrine: No Gastrointestinal Disorders: No GERD: No Genitourinary: No Hiatal Hernia: No Hypertension: Yes Immune Disorder: No Implanted Vascular Access Dvce: No Kidney Stones: No Musculoskeletal: Yes (hx of spinal fusion, chronic back pain) Neurologic: No Psychiatric: No Reproductive: No Respiratory: No Immunizations Current: No Migraines: No Myocardial Infarction: Yes (2015) Radiation Therapy: No Renal Failure: No Seizures: No Sleep Apnea: No Thyroid Disease: No Ulcer: No Past Surgical History Abdominal Surgery: No Cardiac Surgery: No Ear Surgery: No Endocrine Surgery: No Eye Surgery: No Genitourinary Surgery: No Gynecologic Surgery: No Neurologic Surgery: Yes (lumbar fusion) Oral Surgery: Yes (wisdom teeth extracted) Pacemaker: No Thoracic Surgery: No Tonsillectomy: Yes Other Surgery: Yes (TONSILLECTOMY,FUSION) Psychiatric History Psychiatric History Hx Psychiatric Treatment: HAS BEEN NOE ACTED BEFORE. ADMITTED TO [facility] IN 2014. Not currently in tx History of Inpatient Treatment: Yes Guns or firearms in home: No Social History Single male. Homeless. had been at a sober living house. Works as a cook in a restaurant. Hx Alcohol Use: Yes Hx Tobacco Use: Yes (1 ppd) Hx Substance Use: Yes Substance Use Type: Alcohol Other Substances Used: SOBER FOR 2 YEARS UNTIL 1 WEEK AGO. DRANK A 1/5 OF VODKA TODAY. Hx of Substance Use Treatment: Yes Family Psychiatric History Brother committed suicide in 1972 Allergies-Medications (Allergen,Severity, Reaction): Coded Allergies: ketorolac (Unverified Allergy, Severe, MIGRAIN, 05/28/17) metronidazole (Unverified Allergy, Severe, VOMIT, 05/28/17) diphenhydramine (Unverified Adverse Reaction, Severe, ITCH, 05/28/17) Reported Meds & Prescriptions Reported Meds & Active Scripts Active Reported Humulin R Inj (Insulin Human Regular) 1,000 Unit/10 Ml Vial 2 Units SQ ONCE Novolin 70/30 Inj (Insulin Human Isoph/Insulin Regular) 1,000 Units/10 Ml Inj 15 Unit SQ BID Review of Systems Gastrointestinal: COMPLAINS OF: Nausea Musculoskeletal: COMPLAINS OF: Neck pain Mental Status Examination Appearance: Appropriate Consciousness: Alert Orientation: x4 Motor Activity: Normal gait Speech: Unremarkable Language: Adequate Fund of Knowledge: Adequate Attention and Concentration: Adequate Memory: Unremarkable Mood: Appropriate Affect: Appropriate Thought Process & Associations: Intact Thought Content: Appropriate Hallucination Type: None Delusion Type: None Suicidal Ideation: No Suicidal Plan: No Suicidal Intention: No Homicidal Ideation: No Homicidal Plan: No Homicidal Intention: No Insight: Fair Judgment: Adequate [facility] Medical Decision Making Medical Record Reviewed: Yes Assessment/Plan 47-year-old male with history of alcohol abuse , no psychiatric history that presents to the ED on a Noe act initiated by law enforcement. The Noe act alleges that he made suicidal statements to a friend. Darek townsend did not make any attempts at harming himself and denies any previous suicdal attempts. He was intoxicated at the time and presents to ED with BAL of 283. He was monitored in J pod with no behavioral concerns presented and no suicidality. Patient was monitored in secure environment with no suicidality. He denies having made any suicidal statement and continues to say that this was a " big misunderstanding".He shows no evidence of any unstable mental illness as defined under the Noe act. His main issue is alcohol. Noe act is lifted. Clear from psychiatry for discharge Orders Orders ^ Sitter (08/03/17 17:17) Complete Blood Count With Diff (08/03/17 17:17) Comprehensive Metabolic Panel (08/03/17 17:17) Psych Screen (08/03/17 17:17) Drug Screen, Random Urine (08/03/17 17:17) Alcohol (Ethanol) (08/03/17 17:17) Salicylates (Aspirin) (08/03/17 17:17) Tylenol (Acetaminophen) (08/03/17 17:17) Ct Brain W/O Iv Contrast(Rout) (08/03/17 17:29) Alcohol Withdrawal Asmt-Ciwa ONCE (08/03/17 17:31) Ondansetron Inj (Zofran Inj) (08/03/17 17:45) Acetaminophen (Tylenol) (08/03/17 17:45) Flumazenil Inj (Romazicon Inj) (08/03/17 17:45) Lorazepam (Ativan) (08/03/17 17:45) Lorazepam Inj (Ativan Inj) (08/03/17 17:45) Lorazepam (Ativan) (08/03/17 17:45) Lorazepam Inj (Ativan Inj) (08/03/17 17:45) Lorazepam Inj (Ativan Inj) (08/03/17 17:45) Lorazepam Inj (Ativan Inj) (08/03/17 17:45) Ct Cerv Spine W/O Contrast (08/03/17 ) Ct Lumb Spine W/O Contrast (08/03/17 ) Ondansetron Odt (Zofran Odt) (08/03/17 17:45) Diet Diabetic (08/04/17 Breakfast) Diet Regular Basic (08/04/17 Lunch) Results Vital Signs Date Time Temp Pulse Resp B/P (MAP) Pulse Ox O2 Delivery O2 Flow Rate FiO2 08/04/17 07:58 98 18 159/86 (110) 97 Room Air 08/04/17 06:15 97 16 130/69 (89) 95 Room Air 08/04/17 02:03 110 17 175/65 (101) 97 Room Air 08/03/17 22:13 108 16 127/84 (98) 98 Room Air 08/03/17 17:14 98.3 96 24 125/75 (92) 93 Room Air 08/03/17 17:11 98.3 108 19 125/75 (92) 95 Laboratory Tests Test 08/03/17 17:20 White Blood Count 9.2 Red Blood Count 5.16 Hemoglobin 16.0 Hematocrit 47.6 Mean Corpuscular Volume 92.2 Mean Corpuscular Hemoglobin 31.1 Mean Corpuscular Hemoglobin Concent 33.7 Red Cell Distribution Width 13.2 Platelet Count 210 Mean Platelet Volume 8.1 Neutrophils (%) (Auto) 63.7 Lymphocytes (%) (Auto) 29.5 Monocytes (%) (Auto) 5.2 Eosinophils (%) (Auto) 0.6 Basophils (%) (Auto) 1.0 Neutrophils # (Auto) 5.8 Lymphocytes # (Auto) 2.7 Monocytes # (Auto) 0.5 Eosinophils # (Auto) 0.1 Basophils # (Auto) 0.1 CBC Comment DIFF FINAL Differential Comment Blood Urea Nitrogen 6 Creatinine 0.80 Random Glucose 102 Total Protein 7.6 Albumin 3.9 Calcium Level 8.9 Alkaline Phosphatase 90 Aspartate Amino Transf (AST/SGOT) 39 Alanine Aminotransferase (ALT/SGPT) 25 Total Bilirubin 0.4 Sodium Level 142 Potassium Level 3.7 Chloride Level 106 Carbon Dioxide Level 25.3 Anion Gap 11 Estimat Glomerular Filtration Rate 103 Salicylates Level 3.5 Acetaminophen Level LESS THAN 2.0 Ethyl Alcohol Level 283 Diagnosis Primary Impression: alcohol abuse with intoxication Additional Impression: Alcohol-induced mood disorder Psychiatrically Cleared: Yes Med/ Other Pt Specific Info: No Meds Exist/No RX given Disposition: 01 DISCHARGE HOME Condition: Stable Problem Qualifiers Katarina Briggs Aug 04, 2017 09:46
--- NOTE | 2017-08-04 10:32 | PD ---
Physical Exam Date Seen by Provider: Aug 04, 2017 Time Seen by Provider: 10:20 Data Data Last Documented VS Vital Signs Date Time Temp Pulse Resp B/P (MAP) Pulse Ox O2 Delivery O2 Flow Rate FiO2 08/04/17 09:51 08/04/17 09:43 86 18 97 Room Air 08/03/17 17:14 98.3 Orders Orders ^ Sitter (08/03/17 17:17) Complete Blood Count With Diff (08/03/17 17:17) Comprehensive Metabolic Panel (08/03/17 17:17) Psych Screen (08/03/17 17:17) Drug Screen, Random Urine (08/03/17 17:17) Alcohol (Ethanol) (08/03/17 17:17) Salicylates (Aspirin) (08/03/17 17:17) Tylenol (Acetaminophen) (08/03/17 17:17) Ct Brain W/O Iv Contrast(Rout) (08/03/17 17:29) Alcohol Withdrawal Asmt-Ciwa ONCE (08/03/17 17:31) Ondansetron Inj (Zofran Inj) (08/03/17 17:45) Acetaminophen (Tylenol) (08/03/17 17:45) Flumazenil Inj (Romazicon Inj) (08/03/17 17:45) Lorazepam (Ativan) (08/03/17 17:45) Lorazepam Inj (Ativan Inj) (08/03/17 17:45) Lorazepam (Ativan) (08/03/17 17:45) Lorazepam Inj (Ativan Inj) (08/03/17 17:45) Lorazepam Inj (Ativan Inj) (08/03/17 17:45) Lorazepam Inj (Ativan Inj) (08/03/17 17:45) Ct Cerv Spine W/O Contrast (08/03/17 ) Ct Lumb Spine W/O Contrast (08/03/17 ) Ondansetron Odt (Zofran Odt) (08/03/17 17:45) Diet Diabetic (08/04/17 Breakfast) Diet Regular Basic (08/04/17 Lunch) Ed Discharge Order (08/04/17 10:30) Labs Laboratory Tests Test 08/03/17 17:20 White Blood Count 9.2 TH/MM3 Red Blood Count 5.16 MIL/MM3 Hemoglobin 16.0 GM/DL Hematocrit 47.6 % Mean Corpuscular Volume 92.2 FL Mean Corpuscular Hemoglobin 31.1 PG Mean Corpuscular Hemoglobin Concent 33.7 % Red Cell Distribution Width 13.2 % Platelet Count 210 TH/MM3 Mean Platelet Volume 8.1 FL Neutrophils (%) (Auto) 63.7 % Lymphocytes (%) (Auto) 29.5 % Monocytes (%) (Auto) 5.2 % Eosinophils (%) (Auto) 0.6 % Basophils (%) (Auto) 1.0 % Neutrophils # (Auto) 5.8 TH/MM3 Lymphocytes # (Auto) 2.7 TH/MM3 Monocytes # (Auto) 0.5 TH/MM3 Eosinophils # (Auto) 0.1 TH/MM3 Basophils # (Auto) 0.1 TH/MM3 CBC Comment DIFF FINAL Differential Comment Blood Urea Nitrogen 6 MG/DL Creatinine 0.80 MG/DL Random Glucose 102 MG/DL Total Protein 7.6 GM/DL Albumin 3.9 GM/DL Calcium Level 8.9 MG/DL Alkaline Phosphatase 90 U/L Aspartate Amino Transf (AST/SGOT) 39 U/L Alanine Aminotransferase (ALT/SGPT) 25 U/L Total Bilirubin 0.4 MG/DL Sodium Level 142 MEQ/L Potassium Level 3.7 MEQ/L Chloride Level 106 MEQ/L Carbon Dioxide Level 25.3 MEQ/L Anion Gap 11 MEQ/L Estimat Glomerular Filtration Rate 103 ML/MIN Salicylates Level 3.5 MG/DL Acetaminophen Level LESS THAN 2.0 MCG/ML Ethyl Alcohol Level 283 MG/DL [facility] Medical Record Reviewed: Yes Supervised Visit with JUAN: No Narrative Course Patient initially presented to the emergency room under Noe act for alleged suicidal statements. Patient denies ever being suicidal or homicidal. Denies any medical conditions at this time. States he feels well and would like to go home. Patient is competent. He was seen and cleared by the psychiatric nurse practitioner and Noe act was lifted. She does not feel like he is a threat to himself or others at this time. He is stable for discharge. Diagnosis Primary Impression: alcohol abuse with intoxication Additional Impression: Alcohol-induced mood disorder Referrals: [facility] (Out patient) as needed [facility] needed Mental Health and Substance Abuse Patient Instructions: General Instructions, Mood Disorders (ED), Medical Clearance for Psychiatric Care (ED) Departure Forms: Tests/Procedures Additional Instruction: DX: Alcohol Abuse with Intoxication Please return to ED if symptoms worsen. Disposition: 01 DISCHARGE HOME Condition: Stable Lupe Subramanian Aug 04, 2017 10:32
== END 2017-08-04 10:45 | disposition home or self-care (01) ==
LOC: NEPC 17:02 → NEPJ 08-04 10:45
DX: F10.129 Alcohol abuse with intoxication, unspecified (principal); E11.9 Type 2 diabetes mellitus without complications; Y90.8 Blood alcohol level of 240 mg/100 ml or more; Z79.4 Long term (current) use of insulin
CPT/HCPCS: 70450; 72125; 72131; 80053; 80307; 85025; 99284